=== PATIENT | male | born 1960 | race Caucasian/White ===

== ENCOUNTER 2017-05-04 19:16 | Emergency (ER) | payer OTHER ==
[2017-05-04] MEDS ORDERED: Sodium Chloride 0.9% 1000 ML 1,000 ML IV STA (19:31)
--- NOTE | 2017-05-04 19:41 | ERPHSYRPT ---
- History of Present Illness Time Seen by Provider: 05/04/17 19:39 Source: patient Exam Limitations: no limitations Patient Subjective Stated Complaint: pt states hes been having lower back pain for approx 1 week. states he has sharp pain sometimes when twisting and bending Triage Nursing Assessment: pt alert and oriented, asnwers questions approp. skin pink warm and dry. pt ambulatory with steady gait noted. respirations nonlabored with lungs cta. back with no tenderness noted. pt lifts legs withlut dificulty. Physician History: pt states hes been having lower back pain for approx 1 week. states he has sharp pain sometimes when twisting and bending Timing/Duration: week(s) (one week) Method of Injury: unknown Quality: sharp, aching, stabbing Back Pain Location: lumbar spine, paraspinous muscles Severity of Pain-Current: moderate Modifying Factors: Improves With: nothing Associated Symptoms: denies symptoms Previous symptoms: no prior history Allergies/Adverse Reactions: No Known Drug Allergies Allergy (Verified 05/04/17 19:30) Home Medications: Atorvastatin Calcium [Lipitor] 40 mg PO HS 02/07/12 [History] Clopidogrel Bisulfate 75 mg [PLAVIX 75 MG Tablet] 75 mg PO DAILY 02/07/12 [ History] Ezetimibe 10 mg [Zetia 10 MG] 10 mg PO DAILY 02/07/12 [History] Metoprolol Succinate 50 mg [Toprol Xl 50 MG] 25 mg PO DAILY 02/07/12 [History ] Colesevelam HCl [Welchol] 1.875 gm PO DAILY 02/06/16 [History] Insulin Aspart [NovoLOG Insulin] 30 unit SQ TID 02/06/16 [History] Aspirin EC 81 mg [Ecotrin 81 mg] 81 mg PO DAILY 05/04/17 [History] Dapagliflozin/Metformin HCl [Xigduo Xr 5 mg-1,000 mg Tablet] 1 each PO DAILY 08/10 [History] Dulaglutide [Trulicity] 0.75 mg SQ WEEKLY 05/04/17 [History] Insulin Glargine,Hum.rec.anlog [Toujeo Solostar] 90 unit SQ DAILY 05/04/17 [ History] Lisinopril 5 mg [Zestril 5 MG] 5 mg PO DAILY 05/04/17 [History] Hx Tetanus, Diphtheria Vaccination/Date Given: Yes Hx Influenza Vaccination/Date Given: No Hx Pneumococcal Vaccination/Date Given: No Immunizations Up to Date: Yes - Review of Systems Constitutional: No Fever, No Chills Eyes: No Symptoms Ears, Nose, & Throat: No Symptoms Respiratory: No Cough, No Dyspnea Cardiac: No Chest Pain, No Edema, No Syncope Abdominal/Gastrointestinal: No Abdominal Pain, No Nausea, No Vomiting, No Diarrhea Genitourinary Symptoms: No Dysuria Musculoskeletal: Back Pain, No Neck Pain Skin: No Rash Neurological: No Dizziness, No Focal Weakness, No Sensory Changes Psychological: No Symptoms Endocrine: No Symptoms All Other Systems: Reviewed and Negative - Past Medical History Pertinent Past Medical History: Yes Neurological History: No Pertinent History ENT History: No Pertinent History Cardiac History: Coronary Artery Disease, High Cholesterol, Hypertension Respiratory History: No Pertinent History Endocrine Medical History: Diabetes Type II Musculoskeletal History: No Pertinent History GI Medical History: No Pertinent History, Pancreatitis History: No Pertinent History Psycho-Social History: No Pertinent History Male Reproductive Disorders: No Pertinent History - Past Surgical History Past Surgical History: Yes Neuro Surgical History: No Pertinent History Cardiac: Cardiac Catheterization, Cardiac Stent Respiratory: No Pertinent History Gastrointestinal: Cholecystectomy Genitourinary: No Pertinent History Musculoskeletal: Other Male Surgical History: No Pertinent History Other Surgical History: tonsilctomy - Social History Smoking Status: Former smoker How long have you smoked: years Exposure to second hand smoke: No Drug Use: none Patient Lives Alone: Yes - Nursing Vital Signs Nursing Vital Signs: Initial Vital Signs Temperature 97.5 F 05/04/17 19:21 Pulse Rate 79 05/04/17 19:21 Respiratory Rate 16 05/04/17 19:21 Blood Pressure 165/86 05/04/17 19:21 O2 Sat by Pulse Oximetry 97 05/04/17 19:21 Pain Scale Pain Intensity 0 - Physical Exam General Appearance: no apparent distress, alert Eye Exam: PERRL/EOMI, eyes nml inspection Neck Exam: normal inspection, non-tender, supple, full range of motion, No meningismus, No midline tenderness Respiratory Exam: normal breath sounds, lungs clear, No respiratory distress Cardiovascular Exam: regular rate/rhythm, normal heart sounds Gastrointestinal Exam: soft, No tenderness, No mass Extremity Exam: normal inspection, normal range of motion, No calf tenderness, No pedal edema Neurologic Exam: alert, oriented x 3, cooperative, land checker II-XII nml as tested, normal mood/affect, nml station & gait, sensation nml, No motor deficits Skin Exam: normal color, warm, dry, No rash SpO2: 97 Oxygen Delivery: Room Air - Course Nursing assessment & vital signs reviewed: Yes EKG Interpreted by Me: Sinus Rhythm - Radiology Exams Other X-ray Interpretation: Reviewed by me (constipated colon, no acute changes) Ordered Tests: Active Orders 24 hr Category Date Time Status Clean Catch Urine Specimen STAT Care 05/04/17 19:42 Active EKG-ER Only STAT Care 05/04/17 19:31 Active IV Insertion STAT Care 05/04/17 19:44 Active OBSTR/ACUTE ABDOMEN SERIES Stat Exams 05/04/17 19:32 Taken AMYLASE Stat Lab 05/04/17 19:53 Results CBC W DIFF Stat Lab 05/04/17 19:53 Completed CMP Stat Lab 05/04/17 19:53 Results LIPASE Stat Lab 05/04/17 19:53 Results TROPONIN Q3H Lab 05/04/17 19:56 Completed UA W/RFX UR CULTURE Stat Lab 05/04/17 20:03 Received Urine Triage Profile Stat Lab 05/04/17 20:03 Completed Medication Summary Discontinued Medications Generic Name Dose Route Start Last Admin Trade Name Christopher PRN Reason Stop Dose Admin Sodium Chloride 1,000 mls @ 999 mls/hr 05/04/17 19:31 05/04/17 19:48 Sodium Chloride 0.9% 1000 Ml IV 05/04/17 20:31 999 mls/hr .Q1H1M STA Administration Sodium Chloride Confirm 05/04/17 19:46 Sodium Chloride 0.9% 1000 Ml Administered 05/04/17 19:47 Dose 1,000 mls @ ud .ROUTE .STK-MED ONE Lab/Rad Data: Laboratory Result Diagrams 05/04/17 19:53 05/04/17 19:53 Laboratory Results 05/04/17 05/04/17 05/04/17 Range/Units 20:03 19:56 19:53 WBC (4.0-10.5) K/mm3 RBC (4.1-5.6) M/mm3 Hgb (12.5-18.0) gm/dl Hct (42-50) % MCV (78-100) fl MCH (26-32) pg MCHC (32-36) g/dl RDW (11.5-14.0) % Plt Count (150-450) K/mm3 MPV (6-9.5) fl Gran % (36.0-66.0) % Lymphocytes % (24.0-44.0) % Monocytes % (0.0-12.0) % Eosinophils % (0.00-5.0) % Basophils % (0.0-0.4) % Basophils # (0-0.4) Sodium 136 (136-145) mEq/L Potassium 4.2 (3.5-5.1) mEq/L Chloride 102 (98-107) mEq/L Carbon Dioxide 21.1 (21-32) mEq/L Anion Gap 17.2 H (5-15) MEQ/L BUN 18 (9-20) mg/dL Creatinine 0.96 (0.55-1.30) mg/dl Estimated GFR > 60 ML/MIN Glucose 235 H (70-110) MG/DL Calcium 8.7 (8.5-10.1) mg/dL Total Bilirubin 1.80 H (0.2-1.0) mg/dL AST 29 (15-37) U/L ALT Pending Alkaline Phosphatase 84 (46-116) U/L Troponin I < 0.017 (0.000-0.056) ng/ml Serum Total Protein 7.6 (6.4-8.2) gm/dL Albumin 3.8 (3.4-5.0) g/dL Amylase 149 H (25-115) U/L Lipase 375 (73-393) U/L Urine Opiates Level NEG. (NEGATIVE) Ur Methadone NEG. (NEGATIVE) Urine Barbiturates NEG. (NEGATIVE) Ur Phencyclidine (PCP) NEG. (NEGATIVE) Urine Amphetamine NEG. (NEGATIVE) U Benzodiazepine Level NEG. (NEGATIVE) Urine Cocaine NEG. (NEGATIVE) Urine Marijuana (THC) NEG. (NEGATIVE) 05/04/17 Range/Units 19:53 WBC 5.5 (4.0-10.5) K/mm3 RBC 5.09 (4.1-5.6) M/mm3 Hgb 15.3 (12.5-18.0) gm/dl Hct 45.5 (42-50) % MCV 89.4 (78-100) fl MCH 30.1 (26-32) pg MCHC 33.6 (32-36) g/dl RDW 14.4 H (11.5-14.0) % Plt Count 160 (150-450) K/mm3 MPV 10.0 H (6-9.5) fl Gran % 58.6 (36.0-66.0) % Lymphocytes % 26.5 (24.0-44.0) % Monocytes % 10.0 (0.0-12.0) % Eosinophils % 4.0 (0.00-5.0) % Basophils % 0.9 (0.0-0.4) % Basophils # 0.05 (0-0.4) Sodium (136-145) mEq/L Potassium (3.5-5.1) mEq/L Chloride (98-107) mEq/L Carbon Dioxide (21-32) mEq/L Anion Gap (5-15) MEQ/L BUN (9-20) mg/dL Creatinine (0.55-1.30) mg/dl Estimated GFR ML/MIN Glucose (70-110) MG/DL Calcium (8.5-10.1) mg/dL Total Bilirubin (0.2-1.0) mg/dL AST (15-37) U/L ALT Alkaline Phosphatase (46-116) U/L Troponin I (0.000-0.056) ng/ml Serum Total Protein (6.4-8.2) gm/dL Albumin (3.4-5.0) g/dL Amylase (25-115) U/L Lipase (73-393) U/L Urine Opiates Level (NEGATIVE) Ur Methadone (NEGATIVE) Urine Barbiturates (NEGATIVE) Ur Phencyclidine (PCP) (NEGATIVE) Urine Amphetamine (NEGATIVE) U Benzodiazepine Level (NEGATIVE) Urine Cocaine (NEGATIVE) Urine Marijuana (THC) (NEGATIVE) - Progress Progress: improved Counseled pt/family regarding: lab results, diagnosis, need for follow-up, rad results, smoking cessation - Departure Time of Disposition: 20:42 Departure Disposition: Home Clinical Impression: Abdominal pain of unknown cause, Atypical back pain, Constipation by delayed colonic transit Type 2 diabetes mellitus Qualifiers: Diabetes mellitus complication status: with unspecified complications Diabetes mellitus long-term insulin use: with predatory animal exterminator use Qualified Code(s): E11.8 - Type 2 diabetes mellitus with unspecified complications; Z79.4 - terminal gauger ( current) use of insulin Condition: Stable Critical Care Time: Yes Critical Care Time(excluding separately billable procedures): 30-74 minutes Referrals: RUBY LOPEZ MD [Primary Care Provider] - Instructions: Abdominal Pain-Adult, Constipation Additional Instructions: ABDOMINAL PAIN 1. There are several different causes for abdominal pain, some of which may not be able to be identified on initial examination. 2. The important thing to remember is that bodily functions can change in a short period of time. If you notice any of the following symptoms, return to the emergency department or consult your doctor immediately: A. Worsening pain or no improvement in the next 12 hours. B. Increasing, severe abdominal pain C. Blood in stool D. Black stools E. Persistent vomiting F. Fever or chills or other symptoms Please follow the instructions given to you. Please take your medication as prescribed if given. If symptoms recur or get worse, come back to the emergency room if you cannot reach your primary care physician, or call your primary care physician for an appointment. Again if your symptoms get worse, come back to the emergency room. Thanks for visiting emergency room, and let us take care of you.
[2017-05-04] MEDS ORDERED: Sodium Chloride 0.9% 1000 ML 1,000 ML ONE (19:46)
[2017-05-04 20:00] LABS: BASOPHIL % 0.9 % (0.0-0.4); Granulocytes % 58.6 % (36.0-66.0); Lymphocytes % 26.5 % (24.0-44.0); Mean Cell Volume 89.4 fl (78-100); Mean Corpuscular Hemoglobin 30.1 pg (26-32); Platelet Count 160 K/mm3 (150-450); Red Blood Count 5.09 M/mm3 (4.1-5.6); Red Cell Distribution Width 14.4 % (11.5-14.0); White Blood Count 5.5 K/mm3 (4.0-10.5)
[2017-05-04 20:21] LABS: ALBUMIN 3.8 g/dL (3.4-5.0); ALKALINE PHOSPHATASE 84 U/L (46-116); ANION GAP 17.2 MEQ/L (5-15); BLOOD UREA NITROGEN 18 mg/dL (9-20); CHLORIDE 102 mEq/L (98-107); Carbon Dioxide 21.1 mEq/L (21-32); Glucose 235 MG/DL (70-110); LIPASE 375 U/L (73-393); Potassium 4.2 mEq/L (3.5-5.1); SGOT/AST 29 U/L (15-37); SODIUM 136 mEq/L (136-145); Total Protein 7.6 gm/dL (6.4-8.2)
[2017-05-04 20:48] LABS: Collection Type VOID
[2017-05-04 20:49] LABS: Bacteria MODERATE /HPF (NEGATIVE); Bilirubin NEGATIVE (NEGATIVE); Blood TRACE NON-HEM Ery/ul (0-5); COMPLETE URINE MICROSCOPIC? YES; Epithelial Cells FEW /HPF (FEW); Glucose 1000 mg/dL (NEGATIVE); Leukocyte Esterase NEGATIVE (NEGATIVE); Mucus SLIGHT /HPF (NEGATIVE); WBC 0-2 /HPF (0-5)
[2017-05-04 20:50] LABS: SGPT/ALT 37 U/L (12-78)
[2017-05-04 21:08] LABS: ADD URINE CULTURE? YES (NO)
[2017-05-04 21:28] VITALS: BP 128/76; PULSE 79; O2SAT 100
--- NOTE | 2017-05-05 07:59 | XRAY ---
Indication: Back and bilateral CVA pain for one week. Comparison: Chest radiograph March 09, 2016. 2 views of the abdomen demonstrates nonspecific nonobstructed bowel gas pattern with mild food distended stomach and cholecystectomy clips. Solid organs unremarkable. Osseous structures intact with mild degenerative changes throughout the spine. Single PA chest demonstrates interval CABG surgery. Remaining heart and lungs normal. Bony thorax intact. Impression: 1. Nonacute nonobstructed abdomen. 2. Nonacute one view chest.
== END 2017-05-04 21:27 | disposition home or self-care (01) ==
LOC: ED 19:16
DX: R10.9 Unspecified abdominal pain (principal); M54.9 Dorsalgia, unspecified; K59.01 Slow transit constipation; E11.8 Type 2 diabetes mellitus with unspecified complications; Z79.4 Long term (current) use of insulin
CPT/HCPCS: 36000; 36415; 74022; 80053; 80307; 81000; 82150; 83690; 84484; 85025; 87086; 93005; 96360; 99283

== ENCOUNTER 2017-05-16 13:30 | Emergency (ER) | payer OTHER ==
[2017-05-16 13:42] VITALS: O2SAT 95
[2017-05-16] MEDS ORDERED: ARZOL Silver Nitrate Applicator TP ONE ×2 (13:52→13:56)
--- NOTE | 2017-05-16 13:58 | ERPHSYRPT ---
- History of Present Illness Time Seen by Provider: 05/16/17 13:55 Source: patient Exam Limitations: no limitations Patient Subjective Stated Complaint: PT REPORTS HE WAS MOWING HIS YARD WHEN HIS NOSE BEGAN TO BLEED-DENEIS INJURY-DENIES PAIN Triage Nursing Assessment: PT PINK WARM ET [id number] NARE BLEEDING UPON ARRIVAL WITH NO PRESSURE BEING APPLIED-PRESSURE APPLIED ET BLEEDING CONTROLLED Physician History: 56 y/o male comes to the ER with complaints of intermittent nose bleeding for the past 3 days. Pt was mowing when he suddenly had nose bleeding after sneezing. Pt tried applying pressure with no relief. Pt is on ASA and plavix. No other bleeding. Timing/Duration: abrupt onset Severity: mild ENT Location: nose Associated Symptoms: epistaxis Allergies/Adverse Reactions: No Known Drug Allergies Allergy (Verified 05/16/17 13:43) Home Medications: Atorvastatin Calcium [Lipitor] 40 mg PO HS 02/07/12 [History] Clopidogrel Bisulfate 75 mg [PLAVIX 75 MG Tablet] 75 mg PO DAILY 02/07/12 [ History] Ezetimibe 10 mg [Zetia 10 MG] 10 mg PO DAILY 02/07/12 [History] Metoprolol Succinate 50 mg [Toprol Xl 50 MG] 25 mg PO DAILY 02/07/12 [History ] Colesevelam HCl [Welchol] 1.875 gm PO DAILY 02/06/16 [History] Insulin Aspart [NovoLOG Insulin] 30 unit SQ TID 02/06/16 [History] Aspirin EC 81 mg [Ecotrin 81 mg] 81 mg PO DAILY 05/04/17 [History] Dapagliflozin/Metformin HCl [Xigduo Xr 5 mg-1,000 mg Tablet] 1 each PO DAILY 08/10 [History] Dulaglutide [Trulicity] 0.75 mg SQ WEEKLY 05/04/17 [History] Insulin Glargine,Hum.rec.anlog [Toujeo Solostar] 90 unit SQ DAILY 05/04/17 [ History] Lisinopril 5 mg [Zestril 5 MG] 5 mg PO DAILY 05/04/17 [History] Hx Tetanus, Diphtheria Vaccination/Date Given: No Hx Influenza Vaccination/Date Given: No Hx Pneumococcal Vaccination/Date Given: No Immunizations Up to Date: Yes - Review of Systems Constitutional: No Fever, No Chills Eyes: No Symptoms Ears, Nose, & Throat: No Symptoms, Epistaxis Respiratory: No Cough, No Dyspnea Cardiac: No Chest Pain, No Edema, No Syncope Abdominal/Gastrointestinal: No Abdominal Pain, No Nausea, No Vomiting, No Diarrhea Genitourinary Symptoms: No Dysuria Musculoskeletal: No Back Pain, No Neck Pain Skin: No Rash Neurological: No Dizziness, No Focal Weakness, No Sensory Changes Psychological: No Symptoms Endocrine: No Symptoms All Other Systems: Reviewed and Negative - Past Medical History Pertinent Past Medical History: Yes Neurological History: No Pertinent History ENT History: No Pertinent History Cardiac History: Coronary Artery Disease, High Cholesterol, Hypertension Respiratory History: No Pertinent History Endocrine Medical History: Diabetes Type II Musculoskeletal History: No Pertinent History GI Medical History: No Pertinent History, Pancreatitis History: No Pertinent History Psycho-Social History: No Pertinent History Male Reproductive Disorders: No Pertinent History - Past Surgical History Past Surgical History: Yes Neuro Surgical History: No Pertinent History Cardiac: Cardiac Catheterization, Cardiac Stent Respiratory: No Pertinent History Gastrointestinal: Cholecystectomy Genitourinary: No Pertinent History Musculoskeletal: Other Male Surgical History: No Pertinent History Other Surgical History: tonsilctomy - Social History Smoking Status: Former smoker How long have you smoked: years Exposure to second hand smoke: No Drug Use: none Patient Lives Alone: Yes - Nursing Vital Signs Nursing Vital Signs: Initial Vital Signs Temperature 97.9 F 05/16/17 13:39 Pulse Rate 83 05/16/17 13:39 Respiratory Rate 20 05/16/17 13:39 Blood Pressure 127/88 05/16/17 13:39 O2 Sat by Pulse Oximetry 95 05/16/17 13:39 Pain Scale Pain Intensity 2 - Physical Exam General Appearance: no apparent distress, alert Eye Exam: bilateral eye: PERRL, EOMI Nasal Exam: active bleeding Throat Exam: pharynx normal, moist mucus membranes, No tonsillar exudate Neck Exam: supple Cardiovascular/Respiratory Exam: normal breath sounds, regular rate/rhythm Abdominal Exam: non-tender, soft Neurologic Exam: alert, oriented x 3, sensation nml, No motor deficits Skin Exam: normal color, warm, dry SpO2: 95 Oxygen Delivery: Room Air - Course Nursing assessment & vital signs reviewed: Yes Ordered Tests: Active Orders 24 hr Category Date Time Status Apply Nose Clip STAT Care 05/16/17 13:52 Active Epistaxis Set Up STAT Care 05/16/17 13:52 Active CBC W DIFF Stat Lab 05/16/17 14:05 Completed PROTIME WITH INR Stat Lab 05/16/17 14:05 Completed PTT Stat Lab 05/16/17 14:05 Completed Medication Summary Discontinued Medications Generic Name Dose Route Start Last Admin Trade Name Christopher PRN Reason Stop Dose Admin Silver Nitrate 1 pkt 05/16/17 13:52 05/16/17 14:00 Arzol Silver Nitrate Applicator TP 05/16/17 13:53 1 pkt STAT ONE Administration Silver Nitrate Confirm 05/16/17 13:56 Arzol Silver Nitrate Applicator Administered 05/16/17 13:57 Dose 1 pkt TP .STK-MED ONE Lab/Rad Data: Laboratory Result Diagrams 05/16/17 14:05 Laboratory Results 05/16/17 05/16/17 Range/Units 14:05 14:05 WBC 5.1 (4.0-10.5) K/mm3 RBC 5.27 (4.1-5.6) M/mm3 Hgb 15.5 (12.5-18.0) gm/dl Hct 47.2 (42-50) % MCV 89.6 (78-100) fl MCH 29.4 (26-32) pg MCHC 32.8 (32-36) g/dl RDW 14.7 H (11.5-14.0) % Plt Count 159 (150-450) K/mm3 MPV 10.0 H (6-9.5) fl Gran % 59.1 (36.0-66.0) % Lymphocytes % 26.8 (24.0-44.0) % Monocytes % 10.0 (0.0-12.0) % Eosinophils % 3.5 (0.00-5.0) % Basophils % 0.6 (0.0-0.4) % Basophils # 0.03 (0-0.4) INR 0.97 (0.8-3.0) APTT 36.4 H (24.1-36.1) SECONDS - Progress Progress: improved Progress Note: 05/16/17 15:02 Attempted pressure for 30 mins and silver nitrate with no success. I was able to pack the right nostril successfully and the patient will F/U with his PCP in 2 days. - Departure Time of Disposition: 15:03 Departure Disposition: Home Clinical Impression: Epistaxis Condition: Stable Critical Care Time: No Referrals: RUBY LOPEZ MD [Primary Care Provider] - Instructions: Nosebleed Additional Instructions: Follow up with Dr Lopez in 2 days to have the packing removed.
[2017-05-16 14:06] LABS: BASOPHIL % 0.6 % (0.0-0.4); Eosinophil % 3.5 % (0.00-5.0); Granulocytes % 59.1 % (36.0-66.0); Lymphocytes % 26.8 % (24.0-44.0); Mean Cell Volume 89.6 fl (78-100); Mean Corpuscular Hemoglobin 29.4 pg (26-32); Platelet Count 159 K/mm3 (150-450); Red Blood Count 5.27 M/mm3 (4.1-5.6); Red Cell Distribution Width 14.7 % (11.5-14.0); White Blood Count 5.1 K/mm3 (4.0-10.5)
[2017-05-16 14:44] LABS: INR 0.97 (0.8-3.0)
[2017-05-16 14:47] LABS: PTT 36.4 SECONDS (24.1-36.1)
[2017-05-16 15:28] VITALS: BP 174/85; PULSE 81
== END 2017-05-16 15:27 | disposition home or self-care (01) ==
LOC: ED 13:30
DX: R04.0 Epistaxis (principal)
CPT/HCPCS: 36415; 85025; 85610; 85730; 99283; 99284; A9270-GY

== ENCOUNTER 2017-05-18 09:14 | Emergency (ER) | payer OTHER ==
[2017-05-18 09:26] VITALS: O2SAT 95
--- NOTE | 2017-05-18 10:20 | ERPHSYRPT ---
- History of Present Illness Time Seen by Provider: 05/18/17 09:22 Source: patient Patient Subjective Stated Complaint: pt states on 05/16/17 he had nasal packing placed to right nare for nosebleed. pt states he was instructed to have packing removed today. states he does not think there is any more bleeding. Triage Nursing Assessment: pt pink, warm, dry. no active bleeding present. pt afebrile. Physician History: CC: nosebleed hx: 56 y/o patient of dr Lopez takes asa and plavix for his heart. He had nosebleed this week. He was in ER. Nasal balloon packing placed. No further bleeding. He came here to get the packing removed. No other complaints. No fever or chills. Allergies/Adverse Reactions: No Known Drug Allergies Allergy (Verified 05/18/17 09:26) Home Medications: Atorvastatin Calcium [Lipitor] 40 mg PO HS 02/07/12 [History] Clopidogrel Bisulfate 75 mg [PLAVIX 75 MG Tablet] 75 mg PO DAILY 02/07/12 [ History] Ezetimibe 10 mg [Zetia 10 MG] 10 mg PO DAILY 02/07/12 [History] Metoprolol Succinate 50 mg [Toprol Xl 50 MG] 25 mg PO DAILY 02/07/12 [History ] Colesevelam HCl [Welchol] 1.875 gm PO DAILY 02/06/16 [History] Insulin Aspart [NovoLOG Insulin] 30 unit SQ TID 02/06/16 [History] Aspirin EC 81 mg [Ecotrin 81 mg] 81 mg PO DAILY 05/04/17 [History] Dapagliflozin/Metformin HCl [Xigduo Xr 5 mg-1,000 mg Tablet] 1 each PO DAILY 08/10 [History] Dulaglutide [Trulicity] 0.75 mg SQ WEEKLY 05/04/17 [History] Insulin Glargine,Hum.rec.anlog [Toujeo Solostar] 90 unit SQ DAILY 05/04/17 [ History] Lisinopril 5 mg [Zestril 5 MG] 5 mg PO DAILY 05/04/17 [History] Hx Tetanus, Diphtheria Vaccination/Date Given: Yes (unknown) Hx Influenza Vaccination/Date Given: No Hx Pneumococcal Vaccination/Date Given: No Immunizations Up to Date: Yes - Review of Systems Constitutional: No Fever, No Chills Ears, Nose, & Throat: Epistaxis (resolved) Respiratory: No Dyspnea - Past Medical History Pertinent Past Medical History: Yes Neurological History: No Pertinent History ENT History: No Pertinent History Cardiac History: Coronary Artery Disease, High Cholesterol, Hypertension Respiratory History: No Pertinent History Endocrine Medical History: Diabetes Type II Musculoskeletal History: No Pertinent History GI Medical History: No Pertinent History, Pancreatitis History: No Pertinent History Psycho-Social History: No Pertinent History Male Reproductive Disorders: No Pertinent History - Past Surgical History Past Surgical History: Yes Neuro Surgical History: No Pertinent History Cardiac: Cardiac Catheterization, Cardiac Stent Respiratory: No Pertinent History Gastrointestinal: Cholecystectomy Genitourinary: No Pertinent History Musculoskeletal: Other Male Surgical History: No Pertinent History Other Surgical History: tonsilctomy - Social History Smoking Status: Former smoker How long have you smoked: years Exposure to second hand smoke: No Drug Use: none Patient Lives Alone: No - Nursing Vital Signs Nursing Vital Signs: Initial Vital Signs Temperature 99.1 F 05/18/17 09:21 Pulse Rate 98 H 05/18/17 09:21 Respiratory Rate 22 05/18/17 09:21 Blood Pressure 149/96 05/18/17 09:21 O2 Sat by Pulse Oximetry 95 05/18/17 09:21 Pain Scale Pain Intensity 3 - Physical Exam General Appearance: alert Eye Exam: bilateral eye: PERRL, EOMI Throat Exam: pharynx normal Neck Exam: supple Cardiovascular/Respiratory Exam: regular rate/rhythm Neurologic Exam: alert, oriented x 3, cooperative Skin Exam: warm, dry SpO2: 95 Oxygen Delivery: Room Air Comments: Saline applied to right nostril balloon to moisten. No active bleeding. The balloons were deflated and it was removed in toto. No active further bleeding nor sign of infection. Pt has been observed. Will release with nosebleed instructions. - Course Nursing assessment & vital signs reviewed: Yes Ordered Tests: Active Orders 24 hr Category Date Time Status Other ED Treatment STAT Care 05/18/17 09:53 Active - Progress Counseled pt/family regarding: diagnosis, need for follow-up - Departure Time of Disposition: 10:19 Departure Disposition: Home Clinical Impression: Epistaxis Condition: Stable Critical Care Time: No Referrals: RUBY LOPEZ MD [Primary Care Provider] - Instructions: Nosebleed Additional Instructions: Do not rub, pick, blow your nose, or sneeze. Hold pressure for 20 minutes for any bleeding. Follow up with Dr Lopez.
[2017-05-18 10:38] VITALS: BP 115/87; PULSE 88
== END 2017-05-18 10:37 | disposition home or self-care (01) ==
LOC: ED 09:14
DX: R04.0 Epistaxis (principal); Z48.00 Encounter for change or removal of nonsurgical wound dressing
CPT/HCPCS: 99283

== ENCOUNTER 2023-07-26 09:47 | Emergency (ER) | payer MEDICARE, OTHER ==
--- NOTE | 2023-07-26 09:55 | ERPHSYRPT ---
- History of Present Illness Time Seen by Provider: 07/26/23 09:55 Source: patient Exam Limitations: no limitations Physician History: This is a 62-year-old white male patient of Dr. Lopez who presents to the emergency department with intermittent low back pain and left flank pain for the last 2 weeks. He did not suffer any acute traumatic injury or fall. Patient has a history of insulin-dependent diabetes, hypertension and hyperlipidemia. He is on Plavix. Patient does have an outpatient appointment to see a urologist on August 13 of this month. Patient denies chest pain. Patient denies shortness of breath. He has had no nausea vomiting or diarrhea symptoms. He is having some difficulty urinating. He came in today because he could barely tolerate bending over to put on his shoes. Timing/Duration: week(s) (2), intermittent, worse Method of Injury: other Quality: sharp (No injury), stabbing Back Pain Location: lumbar spine Severity of Pain-Max: moderate Severity of Pain-Current: moderate Modifying Factors: Improves With: movement Associated Symptoms: problems urinating, lower back pain, No loss of bowel control, No constipation, No numbness in legs/feet, No sensory/motor loss Previous symptoms: no prior history Allergies/Adverse Reactions: No Known Drug Allergies Allergy (Verified 07/26/23 10:34) Home Medications: Metoprolol Succinate 50 mg [Toprol Xl 50 MG] 25 mg PO BID 02/07/12 [History] Insulin Aspart [NovoLOG Insulin] 0 unit SQ DAILY 02/06/16 [History] Aspirin EC 81 mg [Ecotrin 81 mg] 81 mg PO DAILY 05/04/17 [History] Dapagliflozin/Metformin HCl [Xigduo Xr 5 mg-1,000 mg Tablet] 1 tab PO DAILY 07/26/23 [History] Fenofibric Acid (Choline) [Fenofibric Acid] 135 mg PO DAILY 07/26/23 [History] Icosapent Ethyl [Vascepa] 2 gm PO DAILY 07/26/23 [History] Insulin Regular, Human [Humulin R] 0 unit SQ UD 07/26/23 [History] Levothyroxine Sodium 50 Mcg [Synthroid 50 Mcg] 50 mcg PO DAILY 07/26/23 [History] Lisinopril/Hydrochlorothiazide [Lisinopril-Hctz 20-12.5 mg Tab] 1 each PO DAILY 07/26/23 [History] Hx Tetanus, Diphtheria Vaccination/Date Given: Yes (unknown) Hx Influenza Vaccination/Date Given: No Hx Pneumococcal Vaccination/Date Given: No Travel Risk - International Travel Have you traveled outside of the country in past 3 weeks: No - Coronavirus Screening Are you exhibiting any of the following symptoms?: No Close contact with a COVID-19 positive Pt in past 14-21 Days: No - Review of Systems Constitutional: No Symptoms Eyes: No Symptoms Ears, Nose, & Throat: No Symptoms Respiratory: No Symptoms Cardiac: No Symptoms Abdominal/Gastrointestinal: No Symptoms Genitourinary Symptoms: No Symptoms Musculoskeletal: Back Pain Skin: No Symptoms Neurological: No Symptoms Psychological: No Symptoms Endocrine: No Symptoms Hematologic/Lymphatic: No Symptoms Immunological/Allergic: No Symptoms All Other Systems: Reviewed and Negative - Past Medical History Pertinent Past Medical History: Yes Neurological History: No Pertinent History ENT History: No Pertinent History Cardiac History: Coronary Artery Disease, High Cholesterol, Hypertension Respiratory History: No Pertinent History Endocrine Medical History: Diabetes Type II Musculoskeletal History: No Pertinent History GI Medical History: No Pertinent History, Pancreatitis History: No Pertinent History Psycho-Social History: No Pertinent History Male Reproductive Disorders: No Pertinent History - Past Surgical History Past Surgical History: Yes Neuro Surgical History: No Pertinent History Cardiac: Cardiac Catheterization, Cardiac Stent Respiratory: No Pertinent History Gastrointestinal: Cholecystectomy Genitourinary: No Pertinent History Musculoskeletal: Other Male Surgical History: No Pertinent History Other Surgical History: tonsilctomy - Social History Smoking Status: Former smoker How long have you smoked: years Exposure to second hand smoke: No Drug Use: none Patient Lives Alone: No - Nursing Vital Signs Nursing Vital Signs: Initial Vital Signs Temperature 97.5 F 07/26/23 10:24 Pulse Rate 78 07/26/23 10:24 Blood Pressure 117/61 07/26/23 10:24 O2 Sat by Pulse Oximetry 96 07/26/23 10:24 Pain Scale Pain Intensity [Left Lower 7 Back] Pain Intensity 7 - Physical Exam General Appearance: no apparent distress, alert, anxiety Eye Exam: PERRL/EOMI, eyes nml inspection Ears, Nose, Throat Exam: normal ENT inspection, moist mucous membranes Neck Exam: normal inspection, non-tender, supple, full range of motion Respiratory Exam: normal breath sounds, lungs clear, airway intact, No chest tenderness, No respiratory distress Cardiovascular Exam: regular rate/rhythm, normal heart sounds, normal peripheral pulses Gastrointestinal Exam: soft, normal bowel sounds, No tenderness Rectal Exam: not done Back Exam: normal inspection, normal range of motion, CVA tenderness (Left side), vertebral tenderness (Lumbar level) Extremity Exam: normal inspection, normal range of motion, pelvis stable Neurologic Exam: alert, oriented x 3, cooperative, project manager industrial II-XII nml as tested, normal mood/affect, nml cerebellar function, nml station & gait, sensation nml Skin Exam: normal color, warm, dry Lymphatic Exam: No adenopathy SpO2 Interpretation: normal O2 Delivery: Room Air - Course Nursing assessment & vital signs reviewed: Yes Ordered Tests: Active Orders 24 hr Category Date Time Status ABDOMEN AND PELVIS W/0 CONTRAS [CT] Stat Exams 07/26/23 10:42 Completed RECONSTRUCTION [CT] Stat Exams 07/26/23 10:43 Completed UA W/RFX UR CULTURE Stat Lab 07/26/23 11:34 Completed Lab/Rad Data: Laboratory Results 07/26/23 Range/Units 11:34 Urine Color Yellow (Yellow) Urine Appearance Clear (Clear) Urine pH 5.0 (4.6-8.0) Ur Specific [place] 1.025 (1.005-1.030) Urine Protein Negative (Negative) Urine Glucose (UA) >=1000 A (Negative) mg/dL Urine Ketones Negative (Negative) Urine Blood Negative (Negative) Urine Nitrite Negative (Negative) Urine Bilirubin Negative (Negative) Urine Urobilinogen 0.2 (0.2) mg/dL Ur Leukocyte Esterase Negative (Negative) U Hyaline Cast (Auto) NONE SEEN (0-2) /LPF Urine Microscopic RBC 0-2 (0-5) /HPF Urine Microscopic WBC 0-2 (0-5) /HPF Ur Epithelial Cells None Seen (None Seen) /HPF Urine Bacteria None Seen (None Seen) /HPF Urine Culture Reflexed NO (NO) - Progress Progress Note: 07/26/23 11:00 This patient's medical issue is 1 of low to moderate complexity. Level complex in the work-up performed is based on review of the patient's past medical history, review of the patient's medication list, review the patient's drug allergy list, history of present illness and physical findings on examination. This patient's medical work-up includes CT scan of the abdomen pelvis with reconstruction of lumbar spine and urinalysis. 07/26/23 12:[address] scan of the abdomen and pelvis without contrast and a lumbar reconstruction of the spine CT was interpreted by the radiologist. The abdomen and pelvis CT without contrast shows a fatty left inguinal hernia, degenerative changes in both hips and multilevel thoracolumbar degenerative spondylosis. The reconstruction of the lumbar spine CT shows multilevel thoracolumbar degenerative spondylosis. Counseled pt/family regarding: lab results, diagnosis, need for follow-up, rad results Medical Desision Making - Diagnostic Testing Diagnostic test were ordered, analyzed, and reviewed by me: Yes Radiological Interpretation: Reviewed by me, Teleradiologist Report - Risk of complications The pt has a mod risk of morbidity or mortality based on: Need for prescription drug management - Departure Departure Disposition: Home Clinical Impression: Back pain Condition: Stable Critical Care Time: No Referrals: RUBY LOPEZ MD [Primary Care Provider] - Follow up/PCP as directed Additional Instructions: Drink plenty of fluids. Take your medication as prescribed. Follow-up with your primary care provider today to make arrangements for for further evaluation and management. Prescriptions: Oxycodone HCl/Acetaminophen [Percocet 5-325 mg Tablet] 1 each PO Q8H PRN PRN #6 tablet MDD 3 PRN Reason: Moderate To Severe Pain Naproxen 500 mg [Naprosyn 500 MG] 500 mg PO BID #10 tablet
[2023-07-26 10:34] VITALS: PULSE 78; TEMP 97.5
[2023-07-26 11:32] VITALS: O2SAT 97
--- NOTE | 2023-07-26 11:51 | XRAY ---
Indication: Left flank pain. Difficulty urinating 2 months. Multiple contiguous axial images obtained through the abdomen and pelvis without contrast. Comparison: February 06, 2016 Lung bases clear with incidental tiny left base calcified granuloma. Heart not enlarged again with chronic calcifications. Noncontrasted stomach and bowel loops nonobstructed again with normal appendix. Again mild diffuse fatty liver, splenic calcified granulomas, and cholecystectomy. No free fluid/air. Remaining liver, pancreas, spleen, adrenal glands, kidneys, ureters, and bladder are unremarkable for noncontrast exam. Aorta again mildly arteriosclerotic without aneurysm. Osseous structures intact again with mild degenerative changes throughout thoracolumbar spine and both hips. Stable small fatty left inguinal hernia. Impression: 1. Again fatty liver, arteriosclerotic, fatty left inguinal hernia, old granulomatous disease, degenerative changes both hips, and multilevel thoracolumbar degenerative spondylosis. 2. Remaining CT abdomen/pelvis without contrast exam is negative.
--- NOTE | 2023-07-26 11:53 | XRAY ---
Indication: Low back pain 2-3 weeks. No known injury. Sagittal, coronal, and axial reformatted images lumbar spine obtained using raw data from same day CT evidence/pelvis exam. Comparison: CT abdomen/pelvis February 06, 2016 Axial images again demonstrates mild degenerative endplate spurring throughout the thoracolumbar spine. Facets are symmetric with stable moderate L5-S1 degenerative facet arthropathy. Negative for acute fracture, suspicious bony lesions, or spinal canal stenosis. Sagittal and coronal reformatted images again demonstrates normal lumbar alignment. Vertebral body heights/disc spaces maintained. No acute compression fracture supposition. Impression: Stable multilevel thoracolumbar degenerative changes. No new/acute findings.
[2023-07-26 12:17] LABS: Appearance Clear (Clear); Bacteria None Seen /HPF (None Seen); Bilirubin Negative (Negative); Blood Negative (Negative); Epithelial Cells None Seen /HPF (None Seen); Glucose, Urine >=1000 mg/dL (Negative); Hyaline Casts NONE SEEN /LPF (0-2); Ketones Negative (Negative); Leukocyte Esterase Negative (Negative); Nitrite Negative (Negative); Protein,Urine Dip Negative (Negative); RBC 0-2 /HPF (0-5); Specific Gravity 1.025 (1.005-1.030); Urobilinogen 0.2 mg/dL (0.2); WBC 0-2 /HPF (0-5)
[2023-07-26 12:22] LABS: ADD URINE CULTURE? NO (NO)
[2023-07-26 12:39] VITALS: BP 111/86
== END 2023-07-26 12:56 | disposition home or self-care (01) ==
LOC: ED 09:47
DX: M54.50 Low back pain, unspecified (principal); R10.9 Unspecified abdominal pain; E11.9 Type 2 diabetes mellitus without complications; I10 Essential (primary) hypertension; E78.5 Hyperlipidemia, unspecified; Z79.02 Long term (current) use of antithrombotics/antiplatelets; Z79.4 Long term (current) use of insulin; Z79.84 Long term (current) use of oral hypoglycemic drugs; Z79.899 Other long term (current) drug therapy
CPT/HCPCS: 74176; 76376; 81001; 99283

== ENCOUNTER 2024-03-22 16:22 | Observation (INO) | payer MEDICARE, OTHER ==
--- NOTE | 2024-03-22 17:25 | ERPHSYRPT ---
- History of Present Illness Time Seen by Provider: 03/22/24 17:24 Source: patient Exam Limitations: no limitations Patient Subjective Stated Complaint: Pt states "my blood sugar has been high since yesterday morning". Pt states his blood sugar is usually between 230-260 o r 270 however it has been running mid to high 300s. Pt states he is unable to get blood sugar down and isn't sure when it gets dangerous. Pt denies any dietary changes. Denies cough/vomiting/urinary symptoms. Triage Nursing Assessment: Pt alert and oriented x3. Respirations easy/nonlabored. Skin w/p/d. Ambulated to ED cot without difficulty. Abdomen soft/round/nontender. Physician History: The patient, with a history of diabetes, presents with persistently elevated blood glucose levels. Over the past few days, he has been unable to reduce his blood glucose levels below 300, with a peak of 390. Prior to this, his blood glucose levels were consistently around 220. He is currently on Humalog 40 units before breakfast and dinner, and Levemir if his blood glucose is over 200 at lunch. He has not been following a sliding scale regimen, instead adhering to a fixed dose regimen as advised by his doctor. He previously used NovoLog as per a sliding scale, but this was discontinued and replaced with Levemir. He also mentioned a previous regimen of Humulin R 500, 65 units in the morning and evening, which he felt controlled his diabetes better. He denies any nausea, vomiting, or abdominal pain, but reports increased urination and weakness. He drinks a gallon of tea daily, sweetened with Splenda, and has been advised to increase his water intake. Timing/Duration: week(s) (2) Severity: moderate Modifying Factors: Improves With: other (labile glucose levels) Associated Symptoms: denies symptoms Allergies/Adverse Reactions: No Known Drug Allergies Allergy (Verified 03/22/24 16:50) Home Medications: Metoprolol Succinate 50 mg [Toprol Xl 50 MG] 25 mg PO DAILY 02/07/12 [History ] Aspirin EC 81 mg [Ecotrin 81 mg] 81 mg PO DAILY 05/04/17 [History] Dapagliflozin/Metformin HCl [Xigduo Xr 5 mg-1,000 mg Tablet] 1 tab PO DAILY 07/26/23 [History] Fenofibric Acid (Choline) [Fenofibric Acid] 135 mg PO DAILY 07/26/23 [History] Icosapent Ethyl [Vascepa] 2 gm PO DAILY 07/26/23 [History] Levothyroxine Sodium 50 Mcg [Synthroid 50 Mcg] 50 mcg PO DAILY 07/26/23 [History] Lisinopril/Hydrochlorothiazide [Lisinopril-Hctz 20-12.5 mg Tab] 1 each PO DAILY 07/26/23 [History] Insulin Detemir [Levemir Flexpen] See Rx Instructions .ROUTE .COMPLEX 03/22/24 [History] Insulin Lispro [Humalog] See Rx Instructions .ROUTE .COMPLEX 03/22/24 [History] Naproxen 500 mg [Naprosyn 500 MG] 500 mg PO BID PRN 03/22/24 [History] Hx Tetanus, Diphtheria Vaccination/Date Given: Yes (unknown) Hx Influenza Vaccination/Date Given: No Hx Pneumococcal Vaccination/Date Given: No Travel Risk - International Travel Have you traveled outside of the country in past 3 weeks: No - Emerging Infectious Disease Are you exhibiting symptoms associated with any current EIDs: No - Review of Systems All Other Systems: Reviewed and Negative - Past Medical History Pertinent Past Medical History: Yes Neurological History: No Pertinent History ENT History: No Pertinent History Cardiac History: Coronary Artery Disease, High Cholesterol, Hypertension Respiratory History: No Pertinent History Endocrine Medical History: Diabetes Type II Musculoskeletal History: No Pertinent History GI Medical History: No Pertinent History, Pancreatitis History: No Pertinent History Psycho-Social History: No Pertinent History Male Reproductive Disorders: No Pertinent History - Past Surgical History Past Surgical History: Yes Neuro Surgical History: No Pertinent History Cardiac: Cardiac Catheterization, Cardiac Stent Respiratory: No Pertinent History Gastrointestinal: Cholecystectomy Genitourinary: No Pertinent History Musculoskeletal: Other Male Surgical History: No Pertinent History Other Surgical History: tonsilctomy - Social History Smoking Status: Former smoker How long have you smoked: years Exposure to second hand smoke: No Drug Use: none Patient Lives Alone: No - Social Determinants of Health Will the patient participate in the screening: Declined to provide - Nursing Vital Signs Nursing Vital Signs: Initial Vital Signs Temperature 98.3 F 03/22/24 16:42 Pulse Rate 71 03/22/24 16:42 Respiratory Rate 17 03/22/24 16:42 Blood Pressure 123/58 03/22/24 16:42 O2 Sat by Pulse Oximetry 96 03/22/24 16:42 Pain Scale Pain Intensity 0 - Physical Exam General Appearance: no apparent distress Respiratory Exam: No respiratory distress Cardiovascular Exam: regular rate/rhythm, normal heart sounds, capillary refill <2 sec Gastrointestinal/Abdomen Exam: soft, No tenderness, No distention, No mass, No guarding, No rebound Extremity Exam: No swelling, No tenderness Neurologic Exam: alert, oriented x 3, cooperative Skin Exam: normal color, warm, dry SpO2 Interpretation: normal SpO2: 96 O2 Delivery: Room Air - Course Nursing assessment & vital signs reviewed: Yes Ordered Tests: Active Orders 24 hr Category Date Time Status IV Insertion STAT Care 03/22/24 17:39 Active POCT Glucose Check STAT Care 03/22/24 16:48 Active CBC W DIFF Stat Lab 03/22/24 17:00 Completed CMP Stat Lab 03/22/24 17:00 Completed ETHYL ALCOHOL Stat Lab 03/22/24 17:00 Completed Lactic Acid Urgent Lab 03/22/24 17:25 Completed MAGNESIUM Stat Lab 03/22/24 17:00 Completed POCT GLUCOSE Stat Lab 03/22/24 16:45 Completed POCT GLUCOSE Stat Lab 03/22/24 18:45 Completed UA W/RFX UR CULTURE Stat Lab 03/22/24 17:39 Completed VENOUS BLOOD GAS Urgent Lab 03/22/24 17:27 Completed Transfer Order Routine Transfer 03/22/24 Ordered Medication Summary Generic Name Dose Route Start Last Admin Trade Name Freq PRN Reason Stop Dose Admin Sodium Chloride 1,000 mls @ 999 mls/hr 03/22/24 18:16 03/22/24 18:20 Sodium Chloride 0.9% 1000 Ml IV 03/22/24 19:16 999 mls/hr .Q1H1M STA Administration Discontinued Medications Generic Name Dose Route Start Last Admin Trade Name Freq PRN Reason Stop Dose Admin Sodium Chloride Confirm 03/22/24 18:18 Sodium Chloride 0.9% 1000 Ml Administered 03/22/24 18:19 Dose 1,000 mls @ ud .ROUTE .STK-MED ONE Insulin Human Lispro 10 unit 03/22/24 17:25 03/22/24 17:44 Insulin Lispro 1 Unit SQ 03/22/24 17:26 10 unit STAT ONE Administration Insulin Human Lispro Confirm 03/22/24 17:42 Insulin Lispro 1 Unit Administered 03/22/24 17:43 Dose 10 unit .ROUTE .[facility] ONE Lab/Rad Data: Laboratory Result Diagrams 03/22/24 17:00 03/22/24 17:00 Laboratory Results 03/22/24 03/22/24 03/22/24 Range/Units 18:45 17:39 17:27 WBC (4.23-9.07) x10^3/uL RBC (4.63-6.08) x10^6/uL Hgb (13.7-17.5) g/dL Hct (40.1-51.0) % MCV (79.0-92.2) fL MCH (25.7-32.2) pg MCHC (32.3-36.5) g/dL RDW (11.6-14.4) % Plt Count (163-337) x10^3/uL MPV (9.4-12.4) fL Gran % (34.0-67.9) % Immature Gran % (Auto) (0.001-0.429) % Nucleat RBC Rel Count (0.00-0.2) % Eos # (Auto) (0.04-0.54) x10^3/uL Immature Gran # (Auto) (0.001-0.031) x10^3u/L Absolute Lymphs (auto) (1.32-3.57) x10^3/uL Absolute Monos (auto) (0.30-0.82) x10^3/uL Absolute Nucleated RBC (0.00-0.012) x10^3u/L Lymphocytes % (21.8-53.1) % Monocytes % (5.3-12.2) % Eosinophils % (0.8-7.0) % Basophils % (0.2-1.2) % Absolute Granulocytes (1.78-5.38) x10^3/uL Basophils # (0.01-0.08) x10^3/uL pO2/FiO2 Ratio 21.0 % VBG pH 7.43 H (7.32-7.42) VBG pCO2 at Pat Temp 37 L (42-55) mm/Hg VBG pO2 at Pat Temp 53 H (25-40) mm/Hg VBG HCO3 24.6 (22-28) meq/L VBG O2 Sat (Gerber) 87.2 L (95-100) VBG Base Excess 0.5 (-2.0-2.0) VBG Hemoglobin 15.4 VBG Carboxyhemoglobin 2.5 (0.0-6.9) % T HGB POC Potassium 4.9 (3.5-5.1) Sodium (135-145) mmol/L Potassium (3.5-5.1) mmol/L Chloride (98-107) mmol/L Carbon Dioxide (22-30) mmol/L Anion Gap (5-15) MEQ/L BUN (9-20) mg/dL Creatinine (0.66-1.25) mg/dL Estimated GFR ML/MIN Glucose (74-106) mg/dL POC Glucometer 208 H (74 to 106) mg/dL Lactic Acid (0.4-2.0) Calcium (8.4-10.2) mg/dL Magnesium (1.6-2.3) mg/dL Total Bilirubin (0.2-1.3) mg/dL AST (17-59) U/L ALT (0-50) U/L Alkaline Phosphatase (38-126) U/L Serum Total Protein (6.3-8.2) g/dL Albumin (3.5-5.0) g/dL Urine Color Yellow (Yellow) Urine Appearance Clear (Clear) Urine pH 5.0 (4.6-8.0) Ur Specific [place] 1.025 (1.005-1.030) Urine Protein Negative (Negative) Urine Glucose (UA) >=1000 A (Negative) mg/dL Urine Ketones Negative (Negative) Urine Blood Negative (Negative) Urine Nitrite Negative (Negative) Urine Bilirubin Negative (Negative) Urine Urobilinogen 0.2 (0.2) mg/dL Ur Leukocyte Esterase Negative (Negative) U Hyaline Cast (Auto) NONE SEEN (0-2) /LPF Urine Microscopic RBC 0-2 (0-5) /HPF Urine Microscopic WBC 0-2 (0-5) /HPF Ur Epithelial Cells None Seen (None Seen) /HPF Urine Bacteria None Seen (None Seen) /HPF Urine Culture Reflexed NO (NO) Ethyl Alcohol (0-10) mg/dL 03/22/24 03/22/24 03/22/24 Range/Units 17:25 17:00 17:00 WBC 5.4 (4.23-9.07) x10^3/uL RBC 5.09 (4.63-6.08) x10^6/uL Hgb 14.8 (13.7-17.5) g/dL Hct 45.3 (40.1-51.0) % MCV 89.0 (79.0-92.2) fL MCH 29.1 (25.7-32.2) pg MCHC 32.7 (32.3-36.5) g/dL RDW 13.7 (11.6-14.4) % Plt Count 211 (163-337) x10^3/uL MPV 10.4 (9.4-12.4) fL Gran % 54.8 (34.0-67.9) % Immature Gran % (Auto) 0.4 (0.001-0.429) % Nucleat RBC Rel Count 0.0 (0.00-0.2) % Eos # (Auto) 0.07 (0.04-0.54) x10^3/uL Immature Gran # (Auto) 0.02 (0.001-0.031) x10^3u/L Absolute Lymphs (auto) 1.74 (1.32-3.57) x10^3/uL Absolute Monos (auto) 0.56 (0.30-0.82) x10^3/uL Absolute Nucleated RBC 0.00 (0.00-0.012) x10^3u/L Lymphocytes % 32.2 (21.8-53.1) % Monocytes % 10.4 (5.3-12.2) % Eosinophils % 1.3 (0.8-7.0) % Basophils % 0.9 (0.2-1.2) % Absolute Granulocytes 2.96 (1.78-5.38) x10^3/uL Basophils # 0.05 (0.01-0.08) x10^3/uL pO2/FiO2 Ratio % VBG pH (7.32-7.42) VBG pCO2 at Pat Temp (42-55) mm/Hg VBG pO2 at Pat Temp (25-40) mm/Hg VBG HCO3 (22-28) meq/L VBG O2 Sat (Gerber) (95-100) VBG Base Excess (-2.0-2.0) VBG Hemoglobin VBG Carboxyhemoglobin (0.0-6.9) % T HGB POC Potassium (3.5-5.1) Sodium 134 L (135-145) mmol/L Potassium 4.6 (3.5-5.1) mmol/L Chloride 102 (98-107) mmol/L Carbon Dioxide 20 L (22-30) mmol/L Anion Gap 17.0 H (5-15) MEQ/L BUN 28 H (9-20) mg/dL Creatinine 1.20 (0.66-1.25) mg/dL Estimated GFR 67.1 ML/MIN Glucose 301 H (74-106) mg/dL POC Glucometer (74 to 106) mg/dL Lactic Acid 2.4 H (0.4-2.0) Calcium 10.0 (8.4-10.2) mg/dL Magnesium 2.1 (1.6-2.3) mg/dL Total Bilirubin 1.10 (0.2-1.3) mg/dL AST 31 (17-59) U/L ALT 33 (0-50) U/L Alkaline Phosphatase 62 (38-126) U/L Serum Total Protein 7.3 (6.3-8.2) g/dL Albumin 4.2 (3.5-5.0) g/dL Urine Color (Yellow) Urine Appearance (Clear) Urine pH (4.6-8.0) Ur Specific [place] (1.005-1.030) Urine Protein (Negative) Urine Glucose (UA) (Negative) mg/dL Urine Ketones (Negative) Urine Blood (Negative) Urine Nitrite (Negative) Urine Bilirubin (Negative) Urine Urobilinogen (0.2) mg/dL Ur Leukocyte Esterase (Negative) U Hyaline Cast (Auto) (0-2) /LPF Urine Microscopic RBC (0-5) /HPF Urine Microscopic WBC (0-5) /HPF Ur Epithelial Cells (None Seen) /HPF Urine Bacteria (None Seen) /HPF Urine Culture Reflexed (NO) Ethyl Alcohol < 10 (0-10) mg/dL 03/22/24 Range/Units 16:45 WBC (4.23-9.07) x10^3/uL RBC (4.63-6.08) x10^6/uL Hgb (13.7-17.5) g/dL Hct (40.1-51.0) % MCV (79.0-92.2) fL MCH (25.7-32.2) pg MCHC (32.3-36.5) g/dL RDW (11.6-14.4) % Plt Count (163-337) x10^3/uL MPV (9.4-12.4) fL Gran % (34.0-67.9) % Immature Gran % (Auto) (0.001-0.429) % Nucleat RBC Rel Count (0.00-0.2) % Eos # (Auto) (0.04-0.54) x10^3/uL Immature Gran # (Auto) (0.001-0.031) x10^3u/L Absolute Lymphs (auto) (1.32-3.57) x10^3/uL Absolute Monos (auto) (0.30-0.82) x10^3/uL Absolute Nucleated RBC (0.00-0.012) x10^3u/L Lymphocytes % (21.8-53.1) % Monocytes % (5.3-12.2) % Eosinophils % (0.8-7.0) % Basophils % (0.2-1.2) % Absolute Granulocytes (1.78-5.38) x10^3/uL Basophils # (0.01-0.08) x10^3/uL pO2/FiO2 Ratio % VBG pH (7.32-7.42) VBG pCO2 at Pat Temp (42-55) mm/Hg VBG pO2 at Pat Temp (25-40) mm/Hg VBG HCO3 (22-28) meq/L VBG O2 Sat (Gerber) (95-100) VBG Base Excess (-2.0-2.0) VBG Hemoglobin VBG Carboxyhemoglobin (0.0-6.9) % T HGB POC Potassium (3.5-5.1) Sodium (135-145) mmol/L Potassium (3.5-5.1) mmol/L Chloride (98-107) mmol/L Carbon Dioxide (22-30) mmol/L Anion Gap (5-15) MEQ/L BUN (9-20) mg/dL Creatinine (0.66-1.25) mg/dL Estimated GFR ML/MIN Glucose (74-106) mg/dL POC Glucometer 282 H (74 to 106) mg/dL Lactic Acid (0.4-2.0) Calcium (8.4-10.2) mg/dL Magnesium (1.6-2.3) mg/dL Total Bilirubin (0.2-1.3) mg/dL AST (17-59) U/L ALT (0-50) U/L Alkaline Phosphatase (38-126) U/L Serum Total Protein (6.3-8.2) g/dL Albumin (3.5-5.0) g/dL Urine Color (Yellow) Urine Appearance (Clear) Urine pH (4.6-8.0) Ur Specific [place] (1.005-1.030) Urine Protein (Negative) Urine Glucose (UA) (Negative) mg/dL Urine Ketones (Negative) Urine Blood (Negative) Urine Nitrite (Negative) Urine Bilirubin (Negative) Urine Urobilinogen (0.2) mg/dL Ur Leukocyte Esterase (Negative) U Hyaline Cast (Auto) (0-2) /LPF Urine Microscopic RBC (0-5) /HPF Urine Microscopic WBC (0-5) /HPF Ur Epithelial Cells (None Seen) /HPF Urine Bacteria (None Seen) /HPF Urine Culture Reflexed (NO) Ethyl Alcohol (0-10) mg/dL - Progress Progress: improved Progress Note: Patient given 8 units of insulin lispro and repeat blood glucose down to 301. On laboratory evaluation pH was 7.43, bicarb 20, lactate 2.4 anion gap 17 with greater than 1000 glucose in urine without ketones. Patient given normal saline bolus and will work to adjust his insulin regimen that he was on at home. After researching into the patient's medication history was found that he has been taking his short acting insulin as his long-acting insulin was previously prescribed and vice versa. We will discuss admission with the hospitalist team for fluid resuscitation and further control of his glucose levels. Will also encourage diabetic education and discharged with a firm insulin regimen to avoid this in the future. 03/22/24 18:31 Dr. Wood accepts for observation at 1830. - Departure Departure Disposition: Observation Clinical Impression: Uncontrolled diabetes mellitus, Hyperglycemia, Lactate blood increase, Low serum bicarbonate Condition: Good Critical Care Time: No Referrals: RUBY LOPEZ MD [Primary Care Provider] - Follow up/PCP as directed Instructions: High Blood Sugar, Adult (DC)
[2024-03-22 17:34] LABS: VBG BASE EXCESS 0.5 (-2.0-2.0); VBG CARBOXYHEMOGLOBIN 2.5 % T HGB (0.0-6.9); VBG HCO3- 24.6 meq/L (22-28); VBG HEMOGLOBIN 15.4; VBG O2 SATURATION 87.2 (95-100); VBG POTASSIUM 4.9 (3.5-5.1); VBG pH 7.43 (7.32-7.42)
[2024-03-22 17:35] LABS: Absolute Neutrophil Ct (ANC) 2.96 x10^3/uL (1.78-5.38); BASOPHIL % 0.9 % (0.2-1.2); Basophil (Absolute #) 0.05 x10^3/uL (0.01-0.08); Eosinophil % 1.3 % (0.8-7.0); Eosinophil (Absolute #) 0.07 x10^3/uL (0.04-0.54); Hematocrit 45.3 % (40.1-51.0); Hemoglobin 14.8 g/dL (13.7-17.5); IMMATURE GRAN # 0.02 x10^3u/L (0.001-0.031); IMMATURE GRAN % 0.4 % (0.001-0.429); Lymphocyte (Absolute #) 1.74 x10^3/uL (1.32-3.57); Lymphocytes % 32.2 % (21.8-53.1); Mean Corpuscular Hemoglobin 29.1 pg (25.7-32.2); Mean Corpuscular Hgb Concent. 32.7 g/dL (32.3-36.5); Mean Platelet Volume 10.4 fL (9.4-12.4); Monocyte (Absolute #) 0.56 x10^3/uL (0.30-0.82); Monocytes % 10.4 % (5.3-12.2); Neutrophil % 54.8 % (34.0-67.9); Platelet Count 211 x10^3/uL (163-337); Red Blood Count 5.09 x10^6/uL (4.63-6.08); Red Cell Distribution Width 13.7 % (11.6-14.4); White Blood Count 5.4 x10^3/uL (4.23-9.07)
[2024-03-22] MEDS ORDERED: HUMALOG ONE ×2 (17:42→22:09)
[2024-03-22 17:44] LABS: ALBUMIN 4.2 g/dL (3.5-5.0); ALKALINE PHOSPHATASE 62 U/L (38-126); BLOOD UREA NITROGEN 28 mg/dL (9-20); CHLORIDE 102 mmol/L (98-107); Carbon Dioxide 20 mmol/L (22-30); EST GLOMERULAR FILTRATION RATE 67.1 ML/MIN; ETHYL ALCOHOL < 10 mg/dL (0-10); Glucose 301 mg/dL (74-106); MAGNESIUM 2.1 mg/dL (1.6-2.3); Potassium 4.6 mmol/L (3.5-5.1); SGOT/AST 31 U/L (17-59); SGPT/ALT 33 U/L (0-50); SODIUM 134 mmol/L (135-145); Total Protein 7.3 g/dL (6.3-8.2)
[2024-03-22] MEDS: HUMALOG SQ ONE (17:44)
[2024-03-22] MEDS ORDERED: Sodium Chloride 0.9% 1000 ML 1,000 ML ONE (18:18)
[2024-03-22 18:20] LABS: Appearance Clear (Clear); Bacteria None Seen /HPF (None Seen); Bilirubin Negative (Negative); Blood Negative (Negative); Epithelial Cells None Seen /HPF (None Seen); Glucose, Urine >=1000 mg/dL (Negative); Hyaline Casts NONE SEEN /LPF (0-2); Ketones Negative (Negative); Leukocyte Esterase Negative (Negative); Nitrite Negative (Negative); Protein,Urine Dip Negative (Negative); RBC 0-2 /HPF (0-5); Specific Gravity 1.025 (1.005-1.030); Urobilinogen 0.2 mg/dL (0.2); WBC 0-2 /HPF (0-5)
[2024-03-22] MEDS: Sodium Chloride 0.9% 1000 ML 1,000 ML IV STA (18:20)
[2024-03-22 18:21] LABS: ADD URINE CULTURE? NO (NO)
--- NOTE | 2024-03-22 20:18 | PCM.HP ---
History of Present Illness - Chief Complaint Chief Complaint: uncontrolled diabetes Date: 03/22/24 History of Present Illness: Mr. POLLARD is a 63 year old male with a past medical history significant for hypertension, diabetes and hyperlipidemia who came to the hospital with complaints of markedly elevated blood sugars in the 300-400s. He reports that he had been on Humulin 65 units BID but then his doctor switched him onto Levemir and humalog. He has not been taking it correctly, however, as he has been giving himself Humalog 40 BID and using Levemir as his sliding scale insulin instead of the other way around. Upon arrival, he was found to be acidotic with an elevated lactic acid from his Metformin. No fever/chills. No chest pain or shortness of breath. No nausea, vomiting or diarrhea. No dysuria, hematuria or foamy urine. Creatinine came back elevated at 1.2. - Review of Systems Constitutional: No Fever, No Chills Eyes: No Vision Changes Ears, Nose, & Throat: No Epistaxis Respiratory: No Short Of Breath, No Stridor Cardiac: No Chest Pain, No Edema, No Palpitations Abdominal/Gastrointestinal: No Abdominal Pain, No Nausea, No Vomiting, No Diarrhea Genitourinary Symptoms: No Dysuria, No Frequency, No Hematuria Musculoskeletal: No Back Pain Skin: No Rash Neurological: No Focal Weakness Psychological: No Suicidal Ideations Endocrine: Polyuria, Polydipsia Medications & Allergies Home Medications: Home Medication List Metoprolol Succinate 50 mg [Toprol Xl 50 MG] 25 mg PO DAILY 02/07/12 [History Confirmed 03/22/24] Aspirin EC 81 mg [Ecotrin 81 mg] 81 mg PO DAILY 05/04/17 [History Confirmed 03/22/24] Dapagliflozin/Metformin HCl [Xigduo Xr 5 mg-1,000 mg Tablet] 1 tab PO DAILY 07/26/23 [History Confirmed 03/22/24] Fenofibric Acid (Choline) [Fenofibric Acid] 135 mg PO DAILY 07/26/23 [History Confirmed 03/22/24] Icosapent Ethyl [Vascepa] 2 gm PO DAILY 07/26/23 [History Confirmed 03/22/24] Levothyroxine Sodium 50 Mcg [Synthroid 50 Mcg] 50 mcg PO DAILY 07/26/23 [History Confirmed 03/22/24] Lisinopril/Hydrochlorothiazide [Lisinopril-Hctz 20-12.5 mg Tab] 1 each PO DAILY 07/26/23 [History Confirmed 03/22/24] Atorvastatin Calcium [Lipitor] 80 mg PO HS 03/22/24 [History Confirmed 03/22/24] Insulin Detemir [Levemir Flexpen] See Rx Instructions .ROUTE .COMPLEX 03/22/24 [History Confirmed 03/22/24] Insulin Lispro [Humalog] See Rx Instructions .ROUTE .COMPLEX 03/22/24 [History Confirmed 03/22/24] Allergies/Adverse Reactions: Allergies Allergy/AdvReac Type Severity Reaction Status Date / Time No Known Drug Allergies Allergy Verified 03/22/24 19:40 - Past Medical History Past Medical History: Yes Neurological History: No Pertinent History ENT History: No Pertinent History Cardiac History: Coronary Artery Disease, High Cholesterol, Hypertension Respiratory History: No Pertinent History Endocrine Medical History: Diabetes Type II Musculoskelatal History: No Pertinent History GI Medical History: No Pertinent History, Pancreatitis History: No Pertinent History Pyscho-Social History: No Pertinent History Male Reproductive Disorders: No Pertinent History - Past Surgical History Past Surgical History: Yes Neuro Surgical History: No Pertinent History Cardiac History: Cardiac Catheterization, Cardiac Stent Respiratory Surgery: No Pertinent History GI Surgical History: Cholecystectomy Genitourinary Surgical Hx: No Pertinent History Musculskeletal Surgical Hx: Other Male Surgical History: No Pertinent History Other Surgical History: tonsilctomy - Social History Smoking Status: Former smoker How long have you smoked: years Exposure to second hand smoke: No Alcohol: None Drug Use: none - Social Determinants of Health Will the patient participate in the screening: Declined to provide - Physical Exam Vital Signs: Vital Signs - 24 hr Temp Pulse Resp BP BP Pulse Ox 03/22/24 19:50 97.3 F 55 L 20 143/65 98 03/22/24 19:20 60 18 97 03/22/24 19:13 95 03/22/24 19:08 96 03/22/24 18:54 97 03/22/24 18:20 94 L 03/22/24 18:13 94 L 03/22/24 18:03 94 L 03/22/24 17:32 64 100/52 95 03/22/24 16:42 98.3 F 71 17 123/58 96 General Appearance: no apparent distress Neurologic Exam: alert, oriented x 3 Ears, Nose, Throat Exam: dry mucous membranes Neck Exam: supple Respiratory Exam: No respiratory distress Cardiovascular Exam: regular rate/rhythm Gastrointestinal/Abdomen Exam: soft Back Exam: No rash Extremity Exam: No pedal edema, No swelling Skin Exam: normal color, No rash Results - Labs Lab/Micro Results: Lab Results-Last 24 Hours 03/22/24 03/22/24 03/22/24 Range/Units 16:45 17:00 17:00 WBC 5.4 (4.23-9.07) x10^3/uL RBC 5.09 (4.63-6.08) x10^6/uL Hgb 14.8 (13.7-17.5) g/dL Hct 45.3 (40.1-51.0) % MCV 89.0 (79.0-92.2) fL MCH 29.1 (25.7-32.2) pg MCHC 32.7 (32.3-36.5) g/dL RDW 13.7 (11.6-14.4) % Plt Count 211 (163-337) x10^3/uL MPV 10.4 (9.4-12.4) fL Gran % 54.8 (34.0-67.9) % Immature Gran % (Auto) 0.4 (0.001-0.429) % Nucleat RBC Rel Count 0.0 (0.00-0.2) % Eos # (Auto) 0.07 (0.04-0.54) x10^3/uL Immature Gran # (Auto) 0.02 (0.001-0.031) x10^3u/L Absolute Lymphs (auto) 1.74 (1.32-3.57) x10^3/uL Absolute Monos (auto) 0.56 (0.30-0.82) x10^3/uL Absolute Nucleated RBC 0.00 (0.00-0.012) x10^3u/L Lymphocytes % 32.2 (21.8-53.1) % Monocytes % 10.4 (5.3-12.2) % Eosinophils % 1.3 (0.8-7.0) % Basophils % 0.9 (0.2-1.2) % Absolute Granulocytes 2.96 (1.78-5.38) x10^3/uL Basophils # 0.05 (0.01-0.08) x10^3/uL pO2/FiO2 Ratio % VBG pH (7.32-7.42) VBG pCO2 at Pat Temp (42-55) mm/Hg VBG pO2 at Pat Temp (25-40) mm/Hg VBG HCO3 (22-28) meq/L VBG O2 Sat (Gerber) (95-100) VBG Base Excess (-2.0-2.0) VBG Hemoglobin VBG Carboxyhemoglobin (0.0-6.9) % T HGB POC Potassium (3.5-5.1) Sodium 134 L (135-145) mmol/L Potassium 4.6 (3.5-5.1) mmol/L Chloride 102 (98-107) mmol/L Carbon Dioxide 20 L (22-30) mmol/L Anion Gap 17.0 H (5-15) MEQ/L BUN 28 H (9-20) mg/dL Creatinine 1.20 (0.66-1.25) mg/dL Estimated GFR 67.1 ML/MIN Glucose 301 H (74-106) mg/dL POC Glucometer 282 H (74 to 106) mg/dL Lactic Acid (0.4-2.0) Calcium 10.0 (8.4-10.2) mg/dL Magnesium 2.1 (1.6-2.3) mg/dL Total Bilirubin 1.10 (0.2-1.3) mg/dL AST 31 (17-59) U/L ALT 33 (0-50) U/L Alkaline Phosphatase 62 (38-126) U/L Serum Total Protein 7.3 (6.3-8.2) g/dL Albumin 4.2 (3.5-5.0) g/dL Urine Color (Yellow) Urine Appearance (Clear) Urine pH (4.6-8.0) Ur Specific [place] (1.005-1.030) Urine Protein (Negative) Urine Glucose (UA) (Negative) mg/dL Urine Ketones (Negative) Urine Blood (Negative) Urine Nitrite (Negative) Urine Bilirubin (Negative) Urine Urobilinogen (0.2) mg/dL Ur Leukocyte Esterase (Negative) U Hyaline Cast (Auto) (0-2) /LPF Urine Microscopic RBC (0-5) /HPF Urine Microscopic WBC (0-5) /HPF Ur Epithelial Cells (None Seen) /HPF Urine Bacteria (None Seen) /HPF Urine Culture Reflexed (NO) Ethyl Alcohol < 10 (0-10) mg/dL 03/22/24 03/22/24 03/22/24 Range/Units 17:25 17:27 17:39 WBC (4.23-9.07) x10^3/uL RBC (4.63-6.08) x10^6/uL Hgb (13.7-17.5) g/dL Hct (40.1-51.0) % MCV (79.0-92.2) fL MCH (25.7-32.2) pg MCHC (32.3-36.5) g/dL RDW (11.6-14.4) % Plt Count (163-337) x10^3/uL MPV (9.4-12.4) fL Gran % (34.0-67.9) % Immature Gran % (Auto) (0.001-0.429) % Nucleat RBC Rel Count (0.00-0.2) % Eos # (Auto) (0.04-0.54) x10^3/uL Immature Gran # (Auto) (0.001-0.031) x10^3u/L Absolute Lymphs (auto) (1.32-3.57) x10^3/uL Absolute Monos (auto) (0.30-0.82) x10^3/uL Absolute Nucleated RBC (0.00-0.012) x10^3u/L Lymphocytes % (21.8-53.1) % Monocytes % (5.3-12.2) % Eosinophils % (0.8-7.0) % Basophils % (0.2-1.2) % Absolute Granulocytes (1.78-5.38) x10^3/uL Basophils # (0.01-0.08) x10^3/uL pO2/FiO2 Ratio 21.0 % VBG pH 7.43 H (7.32-7.42) VBG pCO2 at Pat Temp 37 L (42-55) mm/Hg VBG pO2 at Pat Temp 53 H (25-40) mm/Hg VBG HCO3 24.6 (22-28) meq/L VBG O2 Sat (Gerber) 87.2 L (95-100) VBG Base Excess 0.5 (-2.0-2.0) VBG Hemoglobin 15.4 VBG Carboxyhemoglobin 2.5 (0.0-6.9) % T HGB POC Potassium 4.9 (3.5-5.1) Sodium (135-145) mmol/L Potassium (3.5-5.1) mmol/L Chloride (98-107) mmol/L Carbon Dioxide (22-30) mmol/L Anion Gap (5-15) MEQ/L BUN (9-20) mg/dL Creatinine (0.66-1.25) mg/dL Estimated GFR ML/MIN Glucose (74-106) mg/dL POC Glucometer (74 to 106) mg/dL Lactic Acid 2.4 H (0.4-2.0) Calcium (8.4-10.2) mg/dL Magnesium (1.6-2.3) mg/dL Total Bilirubin (0.2-1.3) mg/dL AST (17-59) U/L ALT (0-50) U/L Alkaline Phosphatase (38-126) U/L Serum Total Protein (6.3-8.2) g/dL Albumin (3.5-5.0) g/dL Urine Color Yellow (Yellow) Urine Appearance Clear (Clear) Urine pH 5.0 (4.6-8.0) Ur Specific [place] 1.025 (1.005-1.030) Urine Protein Negative (Negative) Urine Glucose (UA) >=1000 A (Negative) mg/dL Urine Ketones Negative (Negative) Urine Blood Negative (Negative) Urine Nitrite Negative (Negative) Urine Bilirubin Negative (Negative) Urine Urobilinogen 0.2 (0.2) mg/dL Ur Leukocyte Esterase Negative (Negative) U Hyaline Cast (Auto) NONE SEEN (0-2) /LPF Urine Microscopic RBC 0-2 (0-5) /HPF Urine Microscopic WBC 0-2 (0-5) /HPF Ur Epithelial Cells None Seen (None Seen) /HPF Urine Bacteria None Seen (None Seen) /HPF Urine Culture Reflexed NO (NO) Ethyl Alcohol (0-10) mg/dL 03/22/24 03/22/24 Range/Units 18:45 19:36 WBC (4.23-9.07) x10^3/uL RBC (4.63-6.08) x10^6/uL Hgb (13.7-17.5) g/dL Hct (40.1-51.0) % MCV (79.0-92.2) fL MCH (25.7-32.2) pg MCHC (32.3-36.5) g/dL RDW (11.6-14.4) % Plt Count (163-337) x10^3/uL MPV (9.4-12.4) fL Gran % (34.0-67.9) % Immature Gran % (Auto) (0.001-0.429) % Nucleat RBC Rel Count (0.00-0.2) % Eos # (Auto) (0.04-0.54) x10^3/uL Immature Gran # (Auto) (0.001-0.031) x10^3u/L Absolute Lymphs (auto) (1.32-3.57) x10^3/uL Absolute Monos (auto) (0.30-0.82) x10^3/uL Absolute Nucleated RBC (0.00-0.012) x10^3u/L Lymphocytes % (21.8-53.1) % Monocytes % (5.3-12.2) % Eosinophils % (0.8-7.0) % Basophils % (0.2-1.2) % Absolute Granulocytes (1.78-5.38) x10^3/uL Basophils # (0.01-0.08) x10^3/uL pO2/FiO2 Ratio % VBG pH (7.32-7.42) VBG pCO2 at Pat Temp (42-55) mm/Hg VBG pO2 at Pat Temp (25-40) mm/Hg VBG HCO3 (22-28) meq/L VBG O2 Sat (Gerber) (95-100) VBG Base Excess (-2.0-2.0) VBG Hemoglobin VBG Carboxyhemoglobin (0.0-6.9) % T HGB POC Potassium (3.5-5.1) Sodium (135-145) mmol/L Potassium (3.5-5.1) mmol/L Chloride (98-107) mmol/L Carbon Dioxide (22-30) mmol/L Anion Gap (5-15) MEQ/L BUN (9-20) mg/dL Creatinine (0.66-1.25) mg/dL Estimated GFR ML/MIN Glucose (74-106) mg/dL POC Glucometer 208 H (74 to 106) mg/dL Lactic Acid 1.3 (0.4-2.0) Calcium (8.4-10.2) mg/dL Magnesium (1.6-2.3) mg/dL Total Bilirubin (0.2-1.3) mg/dL AST (17-59) U/L ALT (0-50) U/L Alkaline Phosphatase (38-126) U/L Serum Total Protein (6.3-8.2) g/dL Albumin (3.5-5.0) g/dL Urine Color (Yellow) Urine Appearance (Clear) Urine pH (4.6-8.0) Ur Specific [place] (1.005-1.030) Urine Protein (Negative) Urine Glucose (UA) (Negative) mg/dL Urine Ketones (Negative) Urine Blood (Negative) Urine Nitrite (Negative) Urine Bilirubin (Negative) Urine Urobilinogen (0.2) mg/dL Ur Leukocyte Esterase (Negative) U Hyaline Cast (Auto) (0-2) /LPF Urine Microscopic RBC (0-5) /HPF Urine Microscopic WBC (0-5) /HPF Ur Epithelial Cells (None Seen) /HPF Urine Bacteria (None Seen) /HPF Urine Culture Reflexed (NO) Ethyl Alcohol (0-10) mg/dL Accuchecks Date 03/22/24 Time 16:45 Assessment/Plan (1) Hyperglycemia Current Visit: Yes Status: Acute Assessment & Plan: Secondary to incorrect use of long/short acting insulins - should be on Levemir 40u BID and humalog sliding scale, not other way around 1. Admit to hospital 2. IVFs 3. Start long acting insulin and sliding scale coverage 4. Low carb diet 5. Diabetic education 6. Monitor blood sugars closely 7. DVT prophylaxis 8. Nicotine patch Code(s): R73.9 - HYPERGLYCEMIA, UNSPECIFIED (2) Lactic acidosis Current Visit: Yes Status: Acute Assessment & Plan: Secondary to JESUS and Metformin 1. IVFs 2. Hold SGLT2/Metformin for now 3. Trend lactic acid Code(s): E87.20 - ACIDOSIS, UNSPECIFIED (3) Acute kidney injury (nontraumatic) Current Visit: Yes Status: Acute Assessment & Plan: Likely from prerenal azotemia with hyponatremia likely from elevated blood sugars 1. Isotonic IVFs 2. Check urine lytes, urine creatinine 3. Follow I/Os 4. Watch electrolytes, creatinine closely Code(s): N17.9 - ACUTE KIDNEY FAILURE, UNSPECIFIED (4) Hypertensive chronic kidney disease with stage 1 through stage 4 chronic kidney disease, or unspecified chronic kidney disease Current Visit: Yes Status: Acute Assessment & Plan: Blood pressure under reasonable control 1. Continue bp meds 2. Low Na diet 3. Monitor blood pressure readings Code(s): I12.9 - HYPERTENSIVE CHRONIC KIDNEY DISEASE W STG 1-4/UNSP [facility] Telemedicine Encounter - Telemedicine Encounter Telemedicine Encounter: The entirety of this encounter was performed via Telemedicine"
[2024-03-22] MEDS ORDERED: HUMULIN R SQ PRN (20:22)
[2024-03-22] MEDS ORDERED: Docusate Sodium 100 MG PO PRN (20:22)
[2024-03-22] MEDS ORDERED: TYLENOL 325 MG PO PRN (20:22)
[2024-03-22] MEDS: ZOCOR 20MG PO SCH (20:38)
[2024-03-22] MEDS: NICODERM CQ 14 MG TOP SCH (20:38)
[2024-03-22] MEDS: Sodium Chloride 0.9% 1000 ML 1,000 ML IV SCH (20:41)
[2024-03-22] MEDS ORDERED: Lantus Insulin SQ SCH (22:00)
[2024-03-22] MEDS ORDERED: NON-FORMULARY ITEM (Atorvastatin Calcium [Lipitor] 80 MG Tablet) PO SCH (22:00)
[2024-03-22 22:18] LABS: CREATININE,URINE RANDOM 36.5 MG/DL
[2024-03-22] MEDS: Lantus Insulin SQ SCH (22:25)
[2024-03-22] MEDS: HUMALOG SQ PRN (22:25)
[2024-03-22] MEDS: NON-FORMULARY ITEM (Insulin Detemir [Levemir Flexpen] 100 UNIT/ML Insuln.Pen) SQ SCH (22:37)
[2024-03-23 05:49] LABS: Hematocrit 43.4 % (40.1-51.0); Hemoglobin 14.1 g/dL (13.7-17.5); Mean Cell Volume 89.3 fL (79.0-92.2); Mean Corpuscular Hgb Concent. 32.5 g/dL (32.3-36.5); Mean Platelet Volume 10.3 fL (9.4-12.4); Platelet Count 174 x10^3/uL (163-337); Red Blood Count 4.86 x10^6/uL (4.63-6.08); Red Cell Distribution Width 13.8 % (11.6-14.4); White Blood Count 4.8 x10^3/uL (4.23-9.07)
[2024-03-23 06:10] LABS: ALBUMIN 3.7 g/dL (3.5-5.0); ANION GAP 9.6 MEQ/L (5-15); BILIRUBIN,TOTAL 1.2 mg/dL (0.2-1.3); Calcium 9.7 mg/dL (8.4-10.2); Creatinine 1 0.98 mg/dL (0.66-1.25); EST GLOMERULAR FILTRATION RATE 85.6 ML/MIN; Potassium 4.1 mmol/L (3.5-5.1); Total Protein 6.5 g/dL (6.3-8.2)
[2024-03-23] MEDS ORDERED: NON-FORMULARY ITEM (Lisinopril/Hydrochlorothiazide [Lisinopril-Hctz 20-12.5 Mg Tab] 1 EACH PO SCH (10:00)
[2024-03-23] MEDS ORDERED: FENOFIBRIC ACID 135 MG PO SCH (10:00)
[2024-03-23] MEDS ORDERED: Toprol Xl 50 MG PO SCH (10:00)
[2024-03-23] MEDS: ENOXAPARIN SODIUM SQ SCH (10:15)
[2024-03-23] MEDS: ECOTRIN 81 MG PO SCH (10:15)
[2024-03-23] MEDS: hydroDIURIL 25 MG PO SCH (10:15)
[2024-03-23] MEDS: Tricor 145 MG PO SCH (10:17)
[2024-03-23] MEDS: Zestril 20 MG PO SCH (10:17)
[2024-03-23] MEDS: Toprol-Xl 25MG Tablets PO SCH (10:17)
[2024-03-23] MEDS: SYNTHROID 50 MCG PO SCH (10:17)
--- NOTE | 2024-03-23 10:51 | PCM.DS ---
Discharge Summary Date of Admission: 03/22/24 19:35 Date of Discharge: 03/23/24 Admitting Physician: AILYN ZAVALA MD Primary Care Provider: RUBY LOPEZ Allergies Allergies No Known Drug Allergies Allergy (Verified 03/22/24 19:40) Hospital Summary - Hospital Course Hospital Course: Mr. POLLARD is a 63 year old male with a past medical history significant for hypertension, diabetes and hyperlipidemia who came to the hospital with complaints of markedly elevated blood sugars in the 300-400s. He reports that he had been on Humulin 65 units BID but then his doctor switched him onto Levemir and humalog. He has not been taking it correctly, however, as he has been giving himself Humalog 40 BID and using Levemir as his sliding scale insulin instead of the other way around. Upon arrival, he was found to be acidotic with an elevated lactic acid from his Metformin. No fever/chills. No chest pain or shortness of breath. No nausea, vomiting or diarrhea. No dysuria, hematuria or foamy urine. No overnight events noted, blood glucose levels now controlled, acidosis resolved. Long discussion had regarding patient's diabetes medications and how to take them. Will send written instructions. Patient also provided diabetic education including diet, blood glucose monitoring, and safe/effective use of medications - will send home with written plan. Patient verbalized understanding. Ready for discharge. Discharge Note New Diagnosis: Hyperglycemia New Medications: no new meds Follow Up: PCP Latest Assessment & Plan (1) Hyperglycemia Current Visit: Yes Status: Acute Assessment & Plan: Secondary to incorrect use of long/short acting insulins - should be on Levemir 40u BID and humalog sliding scale, not other way around 1. Admit to hospital 2. IVFs 3. Start long acting insulin and sliding scale coverage 4. Low carb diet 5. Diabetic education 6. Monitor blood sugars closely 7. DVT prophylaxis 8. Nicotine patch 03/23; -Resolved Code(s): R73.9 - HYPERGLYCEMIA, UNSPECIFIED (2) Lactic acidosis Current Visit: Yes Status: Acute Assessment & Plan: Secondary to JESUS and Metformin 1. IVFs 2. Hold SGLT2/Metformin for now 3. Trend lactic acid 03/23: -Resolved Code(s): E87.20 - ACIDOSIS, UNSPECIFIED (3) Acute kidney injury (nontraumatic) Current Visit: Yes Status: Acute Assessment & Plan: Likely from prerenal azotemia with hyponatremia likely from elevated blood sugars 1. Isotonic IVFs 2. Check urine lytes, urine creatinine 3. Follow I/Os 4. Watch electrolytes, creatinine closely 03/23: -Resolved Code(s): N17.9 - ACUTE KIDNEY FAILURE, UNSPECIFIED (4) Hypertensive chronic kidney disease with stage 1 through stage 4 chronic kidney disease, or unspecified chronic kidney disease Current Visit: Yes Status: Acute Assessment & Plan: Blood pressure under reasonable control 1. Continue bp meds 2. Low Na diet 3. Monitor blood pressure readings Code(s): I12.9 - HYPERTENSIVE CHRONIC KIDNEY DISEASE W STG 1-4/UNSP CHR KDNY I spent 35 minutes [id number] with the patient on the day of discharge performing discharge exam, discussing hospital stay and discharge instructions with patient and caregivers, preparation of discharge records, prescriptions & referral forms and addressing any questions/concerns the patient had as doc umented above. - Vitals & Intake/Output Vital Signs: Vital Signs Temperature 97.6 F 03/23/24 08:20 Pulse Rate 56 L 03/23/24 08:20 Respiratory Rate 18 03/23/24 08:20 Blood Pressure 168/77 03/23/24 08:20 O2 Sat by Pulse Oximetry 96 03/23/24 08:20 Intake & Output: Intake & Output 03/20/24 03/21/24 03/22/24 03/23/24 11:59 11:59 11:59 11:59 Intake Total 1709 Balance 1709 Weight 111.1 kg - Lab Result Diagrams: 03/23/24 05:34 03/23/24 05:34 Lab Results-Last 24 Hrs: Lab Results-Last 24 Hours 03/22/24 03/22/24 03/22/24 Range/Units 16:45 17:00 17:00 WBC 5.4 (4.23-9.07) x10^3/uL RBC 5.09 (4.63-6.08) x10^6/uL Hgb 14.8 (13.7-17.5) g/dL Hct 45.3 (40.1-51.0) % MCV 89.0 (79.0-92.2) fL MCH 29.1 (25.7-32.2) pg MCHC 32.7 (32.3-36.5) g/dL RDW 13.7 (11.6-14.4) % Plt Count 211 (163-337) x10^3/uL MPV 10.4 (9.4-12.4) fL Gran % 54.8 (34.0-67.9) % Immature Gran % (Auto) 0.4 (0.001-0.429) % Nucleat RBC Rel Count 0.0 (0.00-0.2) % Eos # (Auto) 0.07 (0.04-0.54) x10^3/uL Immature Gran # (Auto) 0.02 (0.001-0.031) x10^3u/L Absolute Lymphs (auto) 1.74 (1.32-3.57) x10^3/uL Absolute Monos (auto) 0.56 (0.30-0.82) x10^3/uL Absolute Nucleated RBC 0.00 (0.00-0.012) x10^3u/L Lymphocytes % 32.2 (21.8-53.1) % Monocytes % 10.4 (5.3-12.2) % Eosinophils % 1.3 (0.8-7.0) % Basophils % 0.9 (0.2-1.2) % Absolute Granulocytes 2.96 (1.78-5.38) x10^3/uL Basophils # 0.05 (0.01-0.08) x10^3/uL pO2/FiO2 Ratio % VBG pH (7.32-7.42) VBG pCO2 at Pat Temp (42-55) mm/Hg VBG pO2 at Pat Temp (25-40) mm/Hg VBG HCO3 (22-28) meq/L VBG O2 Sat (Gerber) (95-100) VBG Base Excess (-2.0-2.0) VBG Hemoglobin VBG Carboxyhemoglobin (0.0-6.9) % T HGB POC Potassium (3.5-5.1) Sodium 134 L (135-145) mmol/L Potassium 4.6 (3.5-5.1) mmol/L Chloride 102 (98-107) mmol/L Carbon Dioxide 20 L (22-30) mmol/L Anion Gap 17.0 H (5-15) MEQ/L BUN 28 H (9-20) mg/dL Creatinine 1.20 (0.66-1.25) mg/dL Estimated GFR 67.1 ML/MIN Glucose 301 H (74-106) mg/dL POC Glucometer 282 H (74 to 106) mg/dL Hemoglobin A1c (4.5-6.0) % Lactic Acid (0.4-2.0) Calcium 10.0 (8.4-10.2) mg/dL Magnesium 2.1 (1.6-2.3) mg/dL Total Bilirubin 1.10 (0.2-1.3) mg/dL AST 31 (17-59) U/L ALT 33 (0-50) U/L Alkaline Phosphatase 62 (38-126) U/L Serum Total Protein 7.3 (6.3-8.2) g/dL Albumin 4.2 (3.5-5.0) g/dL Urine Color (Yellow) Urine Appearance (Clear) Urine pH (4.6-8.0) Ur Specific [place] (1.005-1.030) Urine Protein (Negative) Urine Glucose (UA) (Negative) mg/dL Urine Ketones (Negative) Urine Blood (Negative) Urine Nitrite (Negative) Urine Bilirubin (Negative) Urine Urobilinogen (0.2) mg/dL Ur Leukocyte Esterase (Negative) U Hyaline Cast (Auto) (0-2) /LPF Urine Microscopic RBC (0-5) /HPF Urine Microscopic WBC (0-5) /HPF Ur Epithelial Cells (None Seen) /HPF Urine Bacteria (None Seen) /HPF Urine Culture Reflexed (NO) Ur Random Creatinine MG/DL U Random Total Protein (0-12) mg/dL Urine Sodium (30-90) mmol/L Ethyl Alcohol < 10 (0-10) mg/dL 03/22/24 03/22/24 03/22/24 Range/Units 17:25 17:27 17:39 WBC (4.23-9.07) x10^3/uL RBC (4.63-6.08) x10^6/uL Hgb (13.7-17.5) g/dL Hct (40.1-51.0) % MCV (79.0-92.2) fL MCH (25.7-32.2) pg MCHC (32.3-36.5) g/dL RDW (11.6-14.4) % Plt Count (163-337) x10^3/uL MPV (9.4-12.4) fL Gran % (34.0-67.9) % Immature Gran % (Auto) (0.001-0.429) % Nucleat RBC Rel Count (0.00-0.2) % Eos # (Auto) (0.04-0.54) x10^3/uL Immature Gran # (Auto) (0.001-0.031) x10^3u/L Absolute Lymphs (auto) (1.32-3.57) x10^3/uL Absolute Monos (auto) (0.30-0.82) x10^3/uL Absolute Nucleated RBC (0.00-0.012) x10^3u/L Lymphocytes % (21.8-53.1) % Monocytes % (5.3-12.2) % Eosinophils % (0.8-7.0) % Basophils % (0.2-1.2) % Absolute Granulocytes (1.78-5.38) x10^3/uL Basophils # (0.01-0.08) x10^3/uL pO2/FiO2 Ratio 21.0 % VBG pH 7.43 H (7.32-7.42) VBG pCO2 at Pat Temp 37 L (42-55) mm/Hg VBG pO2 at Pat Temp 53 H (25-40) mm/Hg VBG HCO3 24.6 (22-28) meq/L VBG O2 Sat (Gerber) 87.2 L (95-100) VBG Base Excess 0.5 (-2.0-2.0) VBG Hemoglobin 15.4 VBG Carboxyhemoglobin 2.5 (0.0-6.9) % T HGB POC Potassium 4.9 (3.5-5.1) Sodium (135-145) mmol/L Potassium (3.5-5.1) mmol/L Chloride (98-107) mmol/L Carbon Dioxide (22-30) mmol/L Anion Gap (5-15) MEQ/L BUN (9-20) mg/dL Creatinine (0.66-1.25) mg/dL Estimated GFR ML/MIN Glucose (74-106) mg/dL POC Glucometer (74 to 106) mg/dL Hemoglobin A1c (4.5-6.0) % Lactic Acid 2.4 H (0.4-2.0) Calcium (8.4-10.2) mg/dL Magnesium (1.6-2.3) mg/dL Total Bilirubin (0.2-1.3) mg/dL AST (17-59) U/L ALT (0-50) U/L Alkaline Phosphatase (38-126) U/L Serum Total Protein (6.3-8.2) g/dL Albumin (3.5-5.0) g/dL Urine Color Yellow (Yellow) Urine Appearance Clear (Clear) Urine pH 5.0 (4.6-8.0) Ur Specific [place] 1.025 (1.005-1.030) Urine Protein Negative (Negative) Urine Glucose (UA) >=1000 A (Negative) mg/dL Urine Ketones Negative (Negative) Urine Blood Negative (Negative) Urine Nitrite Negative (Negative) Urine Bilirubin Negative (Negative) Urine Urobilinogen 0.2 (0.2) mg/dL Ur Leukocyte Esterase Negative (Negative) U Hyaline Cast (Auto) NONE SEEN (0-2) /LPF Urine Microscopic RBC 0-2 (0-5) /HPF Urine Microscopic WBC 0-2 (0-5) /HPF Ur Epithelial Cells None Seen (None Seen) /HPF Urine Bacteria None Seen (None Seen) /HPF Urine Culture Reflexed NO (NO) Ur Random Creatinine MG/DL U Random Total Protein (0-12) mg/dL Urine Sodium (30-90) mmol/L Ethyl Alcohol (0-10) mg/dL 03/22/24 03/22/24 03/22/24 Range/Units 17:39 18:45 19:36 WBC (4.23-9.07) x10^3/uL RBC (4.63-6.08) x10^6/uL Hgb (13.7-17.5) g/dL Hct (40.1-51.0) % MCV (79.0-92.2) fL MCH (25.7-32.2) pg MCHC (32.3-36.5) g/dL RDW (11.6-14.4) % Plt Count (163-337) x10^3/uL MPV (9.4-12.4) fL Gran % (34.0-67.9) % Immature Gran % (Auto) (0.001-0.429) % Nucleat RBC Rel Count (0.00-0.2) % Eos # (Auto) (0.04-0.54) x10^3/uL Immature Gran # (Auto) (0.001-0.031) x10^3u/L Absolute Lymphs (auto) (1.32-3.57) x10^3/uL Absolute Monos (auto) (0.30-0.82) x10^3/uL Absolute Nucleated RBC (0.00-0.012) x10^3u/L Lymphocytes % (21.8-53.1) % Monocytes % (5.3-12.2) % Eosinophils % (0.8-7.0) % Basophils % (0.2-1.2) % Absolute Granulocytes (1.78-5.38) x10^3/uL Basophils # (0.01-0.08) x10^3/uL pO2/FiO2 Ratio % VBG pH (7.32-7.42) VBG pCO2 at Pat Temp (42-55) mm/Hg VBG pO2 at Pat Temp (25-40) mm/Hg VBG HCO3 (22-28) meq/L VBG O2 Sat (Gerber) (95-100) VBG Base Excess (-2.0-2.0) VBG Hemoglobin VBG Carboxyhemoglobin (0.0-6.9) % T HGB POC Potassium (3.5-5.1) Sodium (135-145) mmol/L Potassium (3.5-5.1) mmol/L Chloride (98-107) mmol/L Carbon Dioxide (22-30) mmol/L Anion Gap (5-15) MEQ/L BUN (9-20) mg/dL Creatinine (0.66-1.25) mg/dL Estimated GFR ML/MIN Glucose (74-106) mg/dL POC Glucometer 208 H (74 to 106) mg/dL Hemoglobin A1c (4.5-6.0) % Lactic Acid 1.3 (0.4-2.0) Calcium (8.4-10.2) mg/dL Magnesium (1.6-2.3) mg/dL Total Bilirubin (0.2-1.3) mg/dL AST (17-59) U/L ALT (0-50) U/L Alkaline Phosphatase (38-126) U/L Serum Total Protein (6.3-8.2) g/dL Albumin (3.5-5.0) g/dL Urine Color (Yellow) Urine Appearance (Clear) Urine pH (4.6-8.0) Ur Specific [place] (1.005-1.030) Urine Protein (Negative) Urine Glucose (UA) (Negative) mg/dL Urine Ketones (Negative) Urine Blood (Negative) Urine Nitrite (Negative) Urine Bilirubin (Negative) Urine Urobilinogen (0.2) mg/dL Ur Leukocyte Esterase (Negative) U Hyaline Cast (Auto) (0-2) /LPF Urine Microscopic RBC (0-5) /HPF Urine Microscopic WBC (0-5) /HPF Ur Epithelial Cells (None Seen) /HPF Urine Bacteria (None Seen) /HPF Urine Culture Reflexed (NO) Ur Random Creatinine 36.5 MG/DL U Random Total Protein 7 (0-12) mg/dL Urine Sodium 81 (30-90) mmol/L Ethyl Alcohol (0-10) mg/dL 03/22/24 03/23/24 03/23/24 Range/Units 21:57 05:00 05:34 WBC 4.8 (4.23-9.07) x10^3/uL RBC 4.86 (4.63-6.08) x10^6/uL Hgb 14.1 (13.7-17.5) g/dL Hct 43.4 (40.1-51.0) % MCV 89.3 (79.0-92.2) fL MCH 29.0 (25.7-32.2) pg MCHC 32.5 (32.3-36.5) g/dL RDW 13.8 (11.6-14.4) % Plt Count 174 (163-337) x10^3/uL MPV 10.3 (9.4-12.4) fL Gran % (34.0-67.9) % Immature Gran % (Auto) (0.001-0.429) % Nucleat RBC Rel Count (0.00-0.2) % Eos # (Auto) (0.04-0.54) x10^3/uL Immature Gran # (Auto) (0.001-0.031) x10^3u/L Absolute Lymphs (auto) (1.32-3.57) x10^3/uL Absolute Monos (auto) (0.30-0.82) x10^3/uL Absolute Nucleated RBC (0.00-0.012) x10^3u/L Lymphocytes % (21.8-53.1) % Monocytes % (5.3-12.2) % Eosinophils % (0.8-7.0) % Basophils % (0.2-1.2) % Absolute Granulocytes (1.78-5.38) x10^3/uL Basophils # (0.01-0.08) x10^3/uL pO2/FiO2 Ratio % VBG pH (7.32-7.42) VBG pCO2 at Pat Temp (42-55) mm/Hg VBG pO2 at Pat Temp (25-40) mm/Hg VBG HCO3 (22-28) meq/L VBG O2 Sat (Gerber) (95-100) VBG Base Excess (-2.0-2.0) VBG Hemoglobin VBG Carboxyhemoglobin (0.0-6.9) % T HGB POC Potassium (3.5-5.1) Sodium (135-145) mmol/L Potassium (3.5-5.1) mmol/L Chloride (98-107) mmol/L Carbon Dioxide (22-30) mmol/L Anion Gap (5-15) MEQ/L BUN (9-20) mg/dL Creatinine (0.66-1.25) mg/dL Estimated GFR ML/MIN Glucose (74-106) mg/dL POC Glucometer 169 H (74 to 106) mg/dL Hemoglobin A1c (4.5-6.0) % Lactic Acid 1.5 (0.4-2.0) Calcium (8.4-10.2) mg/dL Magnesium (1.6-2.3) mg/dL Total Bilirubin (0.2-1.3) mg/dL AST (17-59) U/L ALT (0-50) U/L Alkaline Phosphatase (38-126) U/L Serum Total Protein (6.3-8.2) g/dL Albumin (3.5-5.0) g/dL Urine Color (Yellow) Urine Appearance (Clear) Urine pH (4.6-8.0) Ur Specific [place] (1.005-1.030) Urine Protein (Negative) Urine Glucose (UA) (Negative) mg/dL Urine Ketones (Negative) Urine Blood (Negative) Urine Nitrite (Negative) Urine Bilirubin (Negative) Urine Urobilinogen (0.2) mg/dL Ur Leukocyte Esterase (Negative) U Hyaline Cast (Auto) (0-2) /LPF Urine Microscopic RBC (0-5) /HPF Urine Microscopic WBC (0-5) /HPF Ur Epithelial Cells (None Seen) /HPF Urine Bacteria (None Seen) /HPF Urine Culture Reflexed (NO) Ur Random Creatinine MG/DL U Random Total Protein (0-12) mg/dL Urine Sodium (30-90) mmol/L Ethyl Alcohol (0-10) mg/dL 03/23/24 03/23/24 03/23/24 Range/Units 05:34 05:34 07:22 WBC (4.23-9.07) x10^3/uL RBC (4.63-6.08) x10^6/uL Hgb (13.7-17.5) g/dL Hct (40.1-51.0) % MCV (79.0-92.2) fL MCH (25.7-32.2) pg MCHC (32.3-36.5) g/dL RDW (11.6-14.4) % Plt Count (163-337) x10^3/uL MPV (9.4-12.4) fL Gran % (34.0-67.9) % Immature Gran % (Auto) (0.001-0.429) % Nucleat RBC Rel Count (0.00-0.2) % Eos # (Auto) (0.04-0.54) x10^3/uL Immature Gran # (Auto) (0.001-0.031) x10^3u/L Absolute Lymphs (auto) (1.32-3.57) x10^3/uL Absolute Monos (auto) (0.30-0.82) x10^3/uL Absolute Nucleated RBC (0.00-0.012) x10^3u/L Lymphocytes % (21.8-53.1) % Monocytes % (5.3-12.2) % Eosinophils % (0.8-7.0) % Basophils % (0.2-1.2) % Absolute Granulocytes (1.78-5.38) x10^3/uL Basophils # (0.01-0.08) x10^3/uL pO2/FiO2 Ratio % VBG pH (7.32-7.42) VBG pCO2 at Pat Temp (42-55) mm/Hg VBG pO2 at Pat Temp (25-40) mm/Hg VBG HCO3 (22-28) meq/L VBG O2 Sat (Gerber) (95-100) VBG Base Excess (-2.0-2.0) VBG Hemoglobin VBG Carboxyhemoglobin (0.0-6.9) % T HGB POC Potassium (3.5-5.1) Sodium 136 (135-145) mmol/L Potassium 4.1 (3.5-5.1) mmol/L Chloride 108 H (98-107) mmol/L Carbon Dioxide 23 (22-30) mmol/L Anion Gap 9.6 (5-15) MEQ/L BUN 25 H (9-20) mg/dL Creatinine 0.98 (0.66-1.25) mg/dL Estimated GFR 85.6 ML/MIN Glucose 188 H (74-106) mg/dL POC Glucometer 198 H (74 to 106) mg/dL Hemoglobin A1c 8.81 H (4.5-6.0) % Lactic Acid (0.4-2.0) Calcium 9.7 (8.4-10.2) mg/dL Magnesium (1.6-2.3) mg/dL Total Bilirubin 1.20 (0.2-1.3) mg/dL AST 27 (17-59) U/L ALT 29 (0-50) U/L Alkaline Phosphatase 55 (38-126) U/L Serum Total Protein 6.5 (6.3-8.2) g/dL Albumin 3.7 (3.5-5.0) g/dL Urine Color (Yellow) Urine Appearance (Clear) Urine pH (4.6-8.0) Ur Specific [place] (1.005-1.030) Urine Protein (Negative) Urine Glucose (UA) (Negative) mg/dL Urine Ketones (Negative) Urine Blood (Negative) Urine Nitrite (Negative) Urine Bilirubin (Negative) Urine Urobilinogen (0.2) mg/dL Ur Leukocyte Esterase (Negative) U Hyaline Cast (Auto) (0-2) /LPF Urine Microscopic RBC (0-5) /HPF Urine Microscopic WBC (0-5) /HPF Ur Epithelial Cells (None Seen) /HPF Urine Bacteria (None Seen) /HPF Urine Culture Reflexed (NO) Ur Random Creatinine MG/DL U Random Total Protein (0-12) mg/dL Urine Sodium (30-90) mmol/L Ethyl Alcohol (0-10) mg/dL Micro Results-Entire Visit: Accuchecks Date 03/23/24 Date 03/22/24 Time 16:45 - Procedures and Test Procedures and Tests throughout Hospitalization: Therapy Orders & Screens 03/22/24 20:21 Smoking Cessation Education ONCE Comment: Diagnosis: uncontrolled diabetes Smoking Status: Former smoker How long have you smoked: years Have you smoked in the past 12 months: Yes Approximately how many cigarettes per day: 1pk/d Do you dip or chew tobacco: No If,Former Smoker,when did you quit: approx 2013 Discharge Exam General Appearance: no apparent distress Neurologic Exam: alert, oriented x 3, cooperative Eye Exam: PERRL Ears, Nose, Throat Exam: normal ENT inspection Neck Exam: normal inspection Respiratory Exam: normal breath sounds, lungs clear Cardiovascular Exam: regular rate/rhythm, normal heart sounds Gastrointestinal/Abdomen Exam: soft, normal bowel sounds Male Genitalia Exam: deferred Rectal Exam: deferred Back Exam: normal inspection Extremity Exam: normal inspection Final Diagnosis/Problem List - Final Discharge Diagnosis/Problem (1) Hyperglycemia Current Visit: Yes Status: Resolved Code(s): R73.9 - HYPERGLYCEMIA, UNSPECIFIED (2) Acute kidney injury (nontraumatic) Current Visit: Yes Status: Resolved Code(s): N17.9 - ACUTE KIDNEY FAILURE, UNSPECIFIED (3) Hypertensive chronic kidney disease with stage 1 through stage 4 chronic kidney disease, or unspecified chronic kidney disease Current Visit: Yes Status: Chronic Code(s): I12.9 - HYPERTENSIVE CHRONIC KIDNEY DISEASE W STG 1-4/UNSP CHR KDNY (4) Lactic acidosis Current Visit: Yes Status: Resolved Code(s): E87.20 - ACIDOSIS, UNSPECIFIED (5) Low serum bicarbonate Current Visit: Yes Status: Resolved Code(s): R79.89 - OTHER SPECIFIED ABNORMAL FINDINGS OF BLOOD CHEMISTRY (6) Uncontrolled diabetes mellitus Current Visit: Yes Status: Chronic Code(s): HNU3087 - - Discharge Disposition: Home, Self-Care Condition: Good Prescriptions: Continue Metoprolol Succinate 50 mg [Toprol Xl 50 MG] 25 mg PO DAILY Aspirin EC 81 mg [Ecotrin 81 mg] 81 mg PO DAILY Lisinopril/Hydrochlorothiazide [Lisinopril-Hctz 20-12.5 mg Tab] 1 each PO DAILY Levothyroxine Sodium 50 Mcg [Synthroid 50 Mcg] 50 mcg PO DAILY Fenofibric Acid (Choline) [Fenofibric Acid] 135 mg PO DAILY Dapagliflozin/Metformin HCl [Xigduo Xr 5 mg-1,000 mg Tablet] 1 tab PO DAILY Icosapent Ethyl [Vascepa] 2 gm PO DAILY Insulin Detemir [Levemir Flexpen] See Rx Instructions .ROUTE .COMPLEX Insulin Lispro [Humalog] See Rx Instructions .ROUTE .COMPLEX Atorvastatin Calcium [Lipitor] 80 mg PO HS Follow up with: RUBY LOPEZ MD [Primary Care Provider] -
[2024-03-23 11:48] VITALS: BP 168/76; PULSE 59; RESP 21; TEMP 97.5; O2SAT 94
--- NOTE | 2024-03-23 13:17 | PCM.DCORD ---
- Discharge Disposition: Home, Self-Care Condition: Good Prescriptions: Continue Metoprolol Succinate 50 mg [Toprol Xl 50 MG] 25 mg PO DAILY Aspirin EC 81 mg [Ecotrin 81 mg] 81 mg PO DAILY Lisinopril/Hydrochlorothiazide [Lisinopril-Hctz 20-12.5 mg Tab] 1 each PO DAILY Levothyroxine Sodium 50 Mcg [Synthroid 50 Mcg] 50 mcg PO DAILY Fenofibric Acid (Choline) [Fenofibric Acid] 135 mg PO DAILY Dapagliflozin/Metformin HCl [Xigduo Xr 5 mg-1,000 mg Tablet] 1 tab PO DAILY Icosapent Ethyl [Vascepa] 2 gm PO DAILY Atorvastatin Calcium [Lipitor] 80 mg PO HS Changed Insulin Lispro [Humalog] See Rx Instructions .ROUTE .COMPLEX #0 Insulin Detemir [Levemir Flexpen] 40 units SQ BID #0 Instructions: Diabetes and diet, High Blood Sugar, Adult ED, Checking your blood sugar at home, Keeping track of your blood sugar Follow up with: RUBY LOPEZ MD [Primary Care Provider] -
== END 2024-03-23 13:58 | disposition home or self-care (01) ==
LOC: ED 16:22 → MED SURG 19:35
PROVIDERS: ADMIT Internal Medicine Nephrology; ATTEND Internal Medicine Nephrology
DX: E11.65 Type 2 diabetes mellitus with hyperglycemia (principal); E87.20 Acidosis, unspecified; I12.9 Hypertensive chronic kidney disease with stage 1 through stage 4 chronic kidney disease, or unspecified chronic kidney disease; E11.22 Type 2 diabetes mellitus with diabetic chronic kidney disease; N18.9 Chronic kidney disease, unspecified; R79.89 Other specified abnormal findings of blood chemistry; E78.5 Hyperlipidemia, unspecified; Z79.899 Other long term (current) drug therapy
CPT/HCPCS: 36000; 36415; 80053; 81001; 82077; 82570; 82805; 82947; 83036; 83605; 83735; 84156; 84300; 85025; 85027; 93268; 96372; 99284; G0378; Q3014; J1650; J1817; A9270-GY